=== PATIENT | male | born 1975 | race Two or more races ===

== ENCOUNTER 2017-06-10 09:07 | Inpatient (IN) | payer OTHER ==
[2017-06-10 10:41] VITALS: BMI 23.1
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
[2017-06-10] MEDS ORDERED: MENTHOL/PHENOL 1 EACH UD MM PRN (15:30)
[2017-06-10] MEDS ORDERED: P-EPHED 60MG/TRIPROLIDI 2.5MG TABLET PO PRN (15:30)
[2017-06-10] MEDS ORDERED: MAGNESIUM HYDROX 2400MG/30ML ORAL SUSPENSION 30 ML CUP PO PRN (15:30)
[2017-06-10] MEDS ORDERED: guaiFENesin/D-METHORPHAN HB 10 ML UNIT-DOSE CUPS PO PRN (15:30)
[2017-06-10] MEDS ORDERED: IBUPROFEN 400 MG TABLET (FP) PO PRN (15:30)
[2017-06-10] MEDS ORDERED: NICOTINE POLACRILEX 4 MG GUM BUC PRN (15:30)
[2017-06-10] MEDS ORDERED: diphenhydrAMINE HCL 50 MG CAPSULE PO PRN (15:30)
[2017-06-10] MEDS ORDERED: LOPERAMIDE HCL 2 MG CAPSULE PO PRN (15:30)
[2017-06-10] MEDS ORDERED: ACETAMINOPHEN 325 MG TABLET (FP) PO PRN (15:30)
[2017-06-10] MEDS ORDERED: MAGNESIUM CITRATE 300 ML BOTTLE PO PRN (15:30)
[2017-06-10] MEDS ORDERED: MAG HYDROX/AL HYDROX/SIMETH 30 ML UNIT-DOSE CUP PO PRN (15:30)
[2017-06-10] MEDS ORDERED: METHADONE HCL 10 MG TABLET (FOR DETOX USE ONLY) PO ONE ×2 (15:42→23:00)
[2017-06-10] MEDS: NICOTINE 21 MG/24 HOURS TOPICAL PATCH TD SCH (16:46)
[2017-06-10] MEDS: diazePAM 5 MG TABLET PO PRN (16:47)
[2017-06-10 21:03] LABS: URINE APPEARANCE CLEAR; URINE BILIRUBIN NEGATIVE (NEGATIVE); URINE BLOOD NEGATIVE (NEGATIVE); URINE COLOR YELLOW; URINE GLUCOSE (UA) NEGATIVE (NEGATIVE); URINE KETONE TRACE (NEGATIVE); URINE LEUK ESTERASE NEGATIVE (NEGATIVE); URINE NITRITE NEGATIVE (NEGATIVE); URINE PROTEIN NEGATIVE (NEGATIVE); URINE UROBILINOGEN NEGATIVE mg/dL (0.2-1.0)
[2017-06-10] MEDS ORDERED: THIAMINE HCL 100 MG TABLET (FP) PO SCH (22:00)
[2017-06-11] MEDS: diazePAM 5 MG TABLET PO PRN (05:49)
--- NOTE | 2017-06-11 09:12 | PN ---
S COWS - Scale Resting Pulse: 0= [place] 80 or Below Sweatin= Chills/Flushing Restless Observation: 1= Difficult to Sit Still Pupil Size: 1= Pupils >than Normal Bone or Joint Aches: 2= Severe Diffuse Aches Runny Nose/ Eye Tearin= Runny Nose/Eyes GI Upset > 30mins: 1= Stomach Cramp Tremor Observation of Outstretched Hands: 1= Tremor [place], Not Seen Yawning Observation: 0= None Anxiety or Irritability: 2=Irritable/Anxious Goose Flesh Skin: 0=Smooth Skin COWS Score: 11 S Progress Note (SOAP) Subjective: interrupted sleep, sweats, shakes, irritable runny nose Objective: 06/11/17 09:30 Vital Signs Temperature 97.2 F L 06/11/17 06:00 Pulse Rate 70 06/11/17 06:00 Respiratory Rate 18 06/11/17 06:00 Blood Pressure 105/63 06/11/17 06:00 O2 Sat by Pulse Oximetry (%) Laboratory Tests 06/10/17 17:15 Urine Color Yellow Urine Appearance Clear Urine pH 6.0 Ur Specific [place] 1.025 Urine Protein Negative Urine Glucose (UA) Negative Urine Ketones Trace H Urine Blood Negative Urine Nitrite Negative Urine Bilirubin Negative Urine Urobilinogen Negative Ur Leukocyte Esterase Negative pt aox3 irritable ambulating runny nose Assessment: 06/11/17 09:31 caridad [email or web address] Plan: cont. detox increase fluids valium prn methadone this am
[2017-06-11] MEDS: NICOTINE 21 MG/24 HOURS TOPICAL PATCH TD SCH (09:47)
[2017-06-11] MEDS ORDERED: PRENATAL VITAMINS W/ FOLIC ACID TABLET (FP) PO SCH (10:00)
[2017-06-11] MEDS ORDERED: METHADONE HCL 10 MG TABLET (FOR DETOX USE ONLY) PO ONE (10:00)
--- NOTE | 2017-06-11 10:13 | DS ---
[facility] Detox Discharge Summary Admission Date: 06/10/17 Discharge Date: 06/11/17 - History Present History: Opioid Dependence - Physical Exam Results Vital Signs: Vital Signs Temperature 97.2 F L 06/11/17 06:00 Pulse Rate 70 06/11/17 06:00 Respiratory Rate 18 06/11/17 06:00 Blood Pressure 105/63 06/11/17 06:00 O2 Sat by Pulse Oximetry (%) - Treatment Hospital Course: Detox Protocol Followed - Medication Discharge Medications: Ambulatory Orders Alprazolam [Xanax] 1 mg PO QID 06/10/17 Zolpidem Tartrate [Ambien] 10 mg PO HS 06/10/17 - Diagnosis (1) Opioid dependence with withdrawal Current Visit: Yes Status: Chronic (2) Anxiety and depression Current Visit: Yes Status: Chronic - AMA Did Patient Leave Against Medical Advice: Yes (wants to leave doesn't want to stay. )
--- NOTE | 2017-06-11 10:24 | EKG ---
Test Reason : Blood Pressure : / mmHG Vent. Rate : 069 BPM Atrial Rate : 069 BPM P-R Int : 168 ms QRS Dur : 092 ms QT Int : 400 ms P-R-T Axes : 066 022 052 degrees QTc Int : 428 ms NORMAL SINUS RHYTHM INCOMPLETE RIGHT BUNDLE BRANCH BLOCK NONSPECIFIC ST AND T WAVE ABNORMALITY Confirmed by MD MENDY, NELLA ([id number]) on 06/11/2017 10:24:16 AM Referred By: Confirmed By:NELLA BROOKE MD
[2017-06-11 10:29] LABS: MCH 27.1 pg (25.7-33.7); MCHC 32.9 g/dl (32.0-35.9); MEAN CELL VOLUME 82.3 fl (80-96); MEAN PLT VOLUME 9.2 fl (7.5-11.1); PLATELET COUNT 184 K/MM3 (134-434); RDW 17.2 % (11.9-15.9)
[2017-06-11 10:35] VITALS: BP 96/59; PULSE 86; TEMP 96.1
[2017-06-11 10:49] LABS: ALBUMIN 3.4 g/dl (3.4-5.0); ALK PHOS 76 U/L (45-117); ANION GAP 8 (8-16); BILIRUBIN,TOTAL 0.2 mg/dL (0.2-1.0); CALCIUM 8.5 mg/dL (8.5-10.1); CO2 27 mmol/L (21-32); GLUCOSE,RANDOM 109 mg/dL (74-106); SGOT/AST 18 U/L (15-37); SGPT/ALT 24 U/L (12-78); TOT PROT 6.7 g/dl (6.4-8.2)
[2017-06-11 13:08] LABS: SICKLE CELL SCREEN NEGATIVE (NEGATIVE)
[2017-06-12] MEDS ORDERED: METHADONE HCL 5 MG TABLET (FOR DETOX USE ONLY) PO ONE (10:00)
[2017-06-13] MEDS ORDERED: METHADONE HCL 5 MG TABLET (FOR DETOX USE ONLY) PO ONE (10:00)
[2017-06-14] MEDS ORDERED: METHADONE HCL 10 MG TABLET (FOR DETOX USE ONLY) PO ONE (10:00)
[2017-06-15] MEDS ORDERED: METHADONE HCL 5 MG TABLET (FOR DETOX USE ONLY) PO ONE (06:00)
== END 2017-06-11 10:40 | disposition left against medical advice (07) | DRG 770 ==
LOC: YASAS 09:07 → Y6N 13:44
PROVIDERS: ADMIT Internal Medicine Addiction Medicine; ATTEND Internal Medicine Addiction Medicine
PROC: HZ2ZZZZ Detoxification Services for Substance Abuse Treatment (ICD-10-PCS; principal; 2017-06-11)
DX: F11.23 Opioid dependence with withdrawal (principal); F17.210 Nicotine dependence, cigarettes, uncomplicated; F41.8 Other specified anxiety disorders
CPT/HCPCS: 36415; 80053; 81003; 85027; 85660; 86593; 93005; 93010

== ENCOUNTER 2017-07-05 21:35 | Emergency (ER) | payer OTHER ==
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
[2017-07-05 21:42] VITALS: BP 110/75; PULSE 78; TEMP 98.1; BMI 23.5
== END 2017-07-05 21:53 | disposition home or self-care (01) ==
LOC: FER 21:35
PROC: 0HQMXZZ Repair Right Foot Skin, External Approach (ICD-10-PCS; principal; 2017-07-05)
DX: S91.111A Laceration without foreign body of right great toe without damage to nail, initial encounter (principal); W45.8XXA Other foreign body or object entering through skin, initial encounter; Y93.9 Activity, unspecified; Y92.9 Unspecified place or not applicable; F17.210 Nicotine dependence, cigarettes, uncomplicated
CPT/HCPCS: 99281-25

== ENCOUNTER 2017-07-13 08:40 | Inpatient (IN) | payer OTHER ==
[2017-07-13 09:03] VITALS: BMI 23.0
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
[2017-07-13 12:41] LABS: HIV 1 & 2 AB NEGATIVE; HIV 1 AGp24 NEGATIVE
[2017-07-13] MEDS ORDERED: guaiFENesin/D-METHORPHAN HB 10 ML UNIT-DOSE CUPS PO PRN (12:57)
[2017-07-13] MEDS ORDERED: LOPERAMIDE HCL 2 MG CAPSULE PO PRN (12:57)
[2017-07-13] MEDS ORDERED: NICOTINE POLACRILEX 2 MG GUM BC PRN (12:57)
[2017-07-13] MEDS ORDERED: MAGNESIUM HYDROX 2400MG/30ML ORAL SUSPENSION 30 ML CUP PO PRN (12:57)
[2017-07-13] MEDS ORDERED: hydrOXYzine PAMOATE 50 MG CAPSULE (FP) PO PRN (12:57)
[2017-07-13] MEDS ORDERED: IBUPROFEN 400 MG TABLET (FP) PO PRN (12:57)
[2017-07-13] MEDS ORDERED: ACETAMINOPHEN 325 MG TABLET (FP) PO PRN (12:57)
[2017-07-13] MEDS ORDERED: diphenhydrAMINE HCL 50 MG CAPSULE PO PRN (12:57)
[2017-07-13] MEDS ORDERED: MENTHOL/PHENOL 1 EACH UD MM PRN (12:57)
[2017-07-13] MEDS ORDERED: MAGNESIUM CITRATE 300 ML BOTTLE PO PRN (12:57)
[2017-07-13] MEDS ORDERED: MAG HYDROX/AL HYDROX/SIMETH 30 ML UNIT-DOSE CUP PO PRN (12:57)
[2017-07-13] MEDS ORDERED: P-EPHED 60MG/TRIPROLIDI 2.5MG TABLET PO PRN (12:57)
[2017-07-13] MEDS ORDERED: METHADONE HCL 10 MG TABLET (FOR DETOX USE ONLY) PO ONE ×2 (14:30→23:00)
[2017-07-13 14:51] LABS: MCH 26.7 pg (25.7-33.7); MCHC 32.5 g/dl (32.0-35.9); MEAN CELL VOLUME 82.1 fl (80-96); MEAN PLT VOLUME 8.5 fl (7.5-11.1); PLATELET COUNT 245 K/MM3 (134-434); RDW 16.8 % (11.9-15.9)
[2017-07-13] MEDS: diazePAM 5 MG TABLET PO PRN ×2 (14:52→20:39)
[2017-07-13] MEDS: NICOTINE 14 MG/24 HOURS TOPICAL PATCH TD SCH (14:52)
[2017-07-13 15:05] LABS: ALBUMIN 3.7 g/dl (3.4-5.0); ANION GAP 7 (8-16); CALCIUM 9.5 mg/dL (8.5-10.1); CO2 29 mmol/L (21-32); GLUCOSE,RANDOM 116 mg/dL (74-106)
[2017-07-13 15:08] LABS: ALK PHOS 78 U/L (45-117); BILIRUBIN,TOTAL 0.4 mg/dL (0.2-1.0); CREATININE 0.8 mg/dL (0.7-1.3); SGOT/AST 27 U/L (15-37); SGPT/ALT 36 U/L (12-78); TOT PROT 7.6 g/dl (6.4-8.2)
[2017-07-13 17:58] LABS: URINE APPEARANCE CLEAR; URINE BILIRUBIN NEGATIVE (NEGATIVE); URINE BLOOD NEGATIVE (NEGATIVE); URINE COLOR YELLOW; URINE GLUCOSE (UA) NEGATIVE (NEGATIVE); URINE KETONE NEGATIVE (NEGATIVE); URINE LEUK ESTERASE NEGATIVE (NEGATIVE); URINE NITRITE NEGATIVE (NEGATIVE); URINE PROTEIN NEGATIVE (NEGATIVE); URINE UROBILINOGEN NEGATIVE mg/dL (0.2-1.0)
[2017-07-13] MEDS ORDERED: THIAMINE HCL 100 MG TABLET (FP) PO SCH (22:00)
[2017-07-14] MEDS: diazePAM 5 MG TABLET PO PRN ×2 (07:00→10:23)
[2017-07-14 09:30] VITALS: BP 101/73; PULSE 87; TEMP 97.7
[2017-07-14] MEDS ORDERED: PRENATAL VITAMINS W/ FOLIC ACID TABLET (FP) PO SCH (10:00)
[2017-07-14] MEDS ORDERED: METHADONE HCL 10 MG TABLET (FOR DETOX USE ONLY) PO ONE (10:00)
[2017-07-14] MEDS: NICOTINE 14 MG/24 HOURS TOPICAL PATCH TD SCH (10:21)
[2017-07-14] MEDS ORDERED: CYCLOBENZAPRINE HCL 10 MG TABLET (FP) PO PRN (10:28)
--- NOTE | 2017-07-14 11:12 | CONSULT ---
[facility] Psychiatric Consult - Data Date of interview: 07/14/17 Admission source: [facility] Identifying data: Readmission to [facility] for this 41 y/o [place]-Vincentian male seekig detox treatment on for xanax and heroin dependence.Patient is ,a father of two,domiciled and currently employed. Substance Abuse History: Patient confirmed this report in this interview. Smoking Cessation. Smoking history: Current every day smoker. Have you smoked in the past 12 months: Yes. Aproximately how many cigarettes per day: 30. Hx Chewing Tobacco Use: No. Initiated information on smoking cessation: Yes. ' Breaking Loose' booklet given: 07/13/17. - Substance & Tx. History. Hx Alcohol Use: No (DENIES). Hx Substance Use: Yes (XANAX/HEROIN). Substance Use Type: Heroin, Tranquilizers (PT ON RX XANAX 4 MG PO DAILY.). Hx Substance Use Treatment: Yes (LAST DETOX AT [facility] BUT LEFT AMA). - Substances Abused. Heroin. Route: Injection. Frequency: Daily. Amount used: 10-15 bags. Age of first use: 39. Date of Last Use: 07/13/17. Alprazolam (Xanax). Route: Oral. Frequency: Daily. Amount used: 1 MG 4X DAILY RX. Age of first use: 39. Date of Last Use: 07/13/17 Medical History: Remarkable for a history of orthosurgery for torn meniscus in both knees and laminectomy. Psychiatric History: No reported history of psychiatric hospitalizations.Followed by a private psychiatrist in the community.Diagnosed with Anxiety Disorder and prescribed alprazolam.Mr Melvin denies history of suicide attempts. Physical/Sexual Abuse/Trauma History: Patient denies. Additional Comment: Urine Drug Screen Results: OPI-Opiates, BZO-Benzodiazepines , TCA-Tricyclic Antidepressant.Noted. Mental Status Exam - Mental Status Exam Alert and Oriented to: Time, Place, Person Cognitive Function: Good Patient Appearance: Well Groomed Mood: Hopeful Affect: Appropriate, Normal Range Patient Behavior: Appropriate, Cooperative Speech Pattern: Clear Voice Loudness: Normal Thought Process: Intact, Goal Oriented Thought Disorder: Not Present Hallucinations: Denies Suicidal Ideation: Denies Homicidal Ideation: Denies Insight/Judgement: Poor Sleep: Poorly, Difficulty falling asleep Appetite: Good Muscle strength/Tone: Normal Gait/Station: Normal Psychiatric Findings - Problem List ([place] 1, 2,3) (1) Opioid dependence with withdrawal Current Visit: Yes Status: Acute (2) Benzodiazepine dependence Current Visit: Yes Status: Acute (3) Nicotine dependence Current Visit: Yes Status: Acute (4) Substance induced mood disorder Current Visit: Yes Status: Acute (5) Insomnia Current Visit: Yes Status: Acute - Initial Treatment Plan Initial Treatment Plan: Psychoeducation.Detoxification.Insomnia is addressed with benadryl 50 mg po hs prn.Side effects/benefits discussed with patient.He agrees with this careplan.Observation.
--- NOTE | 2017-07-14 12:57 | EKG ---
Test Reason : Blood Pressure : / mmHG Vent. Rate : 080 BPM Atrial Rate : 080 BPM P-R Int : 174 ms QRS Dur : 088 ms QT Int : 374 ms P-R-T Axes : 077 047 065 degrees QTc Int : 431 ms NORMAL SINUS RHYTHM NORMAL ECG WHEN COMPARED WITH ECG OF 10-JUN-2017 15:24, T WAVE INVERSION NO LONGER EVIDENT IN ANTERIOR LEADS Confirmed by SANDRITA CID, BRIGHT ([id number]) on 07/14/2017 12:57:40 PM Referred By: Moisés Juarez Confirmed By:BRIGHT REMY MD
--- NOTE | 2017-07-14 16:46 | DS ---
[facility] Detox Discharge Summary Admission Date: 07/13/17 Discharge Date: 07/14/17 - History Present History: Opioid Dependence, Sedative Dependence Additional Comments: PATIENT DID NOT WISH TO STAY TO COMPLETE DETOX REGIMEN. PATIENT ADVISED TO GO IMMEDIATELY TO NEAREST ER SHOULD ANY INTOLERABLE DETOX SYMPTOMS DEVELOP AT ANY TIME. PATIENT LEFT UNIT IN STABLE MEDICAL CONDITION. Pertinent Past History: Anxiety / Depression, Insomnia. - Physical Exam Results Vital Signs: Vital Signs Temperature 97.7 F 07/14/17 09:29 Pulse Rate 87 07/14/17 09:29 Respiratory Rate 20 07/14/17 09:29 Blood Pressure 101/73 07/14/17 09:29 O2 Sat by Pulse Oximetry (%) Pertinent Admission Physical Exam Findings: WITHDRAWAL SYMPTOMS. Laboratory Tests 07/13/17 07/13/17 07/13/17 10:50 13:00 13:00 WBC 11.0 H RBC 4.89 Hgb 13.1 D Hct 40.1 MCV 82.1 MCH 26.7 MCHC 32.5 RDW 16.8 H Plt Count 245 D MPV 8.5 Sodium Potassium Chloride Carbon Dioxide Anion Gap BUN Creatinine Creat Clearance w eGFR Random Glucose Calcium Total Bilirubin AST ALT Alkaline Phosphatase Total Protein Albumin Urine Color Urine Appearance Urine pH Ur Specific [place] Urine Protein Urine Glucose (UA) Urine Ketones Urine Blood Urine Nitrite Urine Bilirubin Urine Urobilinogen Ur Leukocyte Esterase RPR Titer Nonreactive HIV 1&2 Antibody Screen Negative HIV P24 Antigen Negative 07/13/17 07/13/17 13:00 14:00 WBC RBC Hgb Hct MCV MCH MCHC RDW Plt Count MPV Sodium 139 Potassium 4.3 Chloride 103 Carbon Dioxide 29 Anion Gap 7 L BUN 17 Creatinine 0.8 Creat Clearance w eGFR > 60 Random Glucose 116 H Calcium 9.5 Total Bilirubin 0.4 D AST 27 D ALT 36 D Alkaline Phosphatase 78 Total Protein 7.6 Albumin 3.7 Urine Color Yellow Urine Appearance Clear Urine pH 6.0 Ur Specific [place] 1.020 Urine Protein Negative Urine Glucose (UA) Negative Urine Ketones Negative Urine Blood Negative Urine Nitrite Negative Urine Bilirubin Negative Urine Urobilinogen Negative Ur Leukocyte Esterase Negative RPR Titer HIV 1&2 Antibody Screen HIV P24 Antigen LABS NOTED. - Treatment Hospital Course: Detoxed Safely - Diagnosis (1) Insomnia Status: Acute Qualifiers: Insomnia type: unspecified Qualified Code(s): G47.00 - Insomnia, unspecified (2) Nicotine dependence Status: Chronic Qualifiers: Nicotine product type: cigarettes Substance use status: in withdrawal Qualified Code(s): F17.213 - Nicotine dependence, cigarettes, with withdrawal (3) Opioid dependence with withdrawal Status: Acute (4) Substance induced mood disorder Status: Acute (5) Anxiety and depression Status: Chronic (6) Benzodiazepine dependence Status: Acute - AMA Did Patient Leave Against Medical Advice: Yes (PATIENT DID NOT WISH TO STAY TO COMPLETE DETOX REGIMEN.)
[2017-07-15] MEDS ORDERED: METHADONE HCL 5 MG TABLET (FOR DETOX USE ONLY) PO ONE (10:00)
[2017-07-16] MEDS ORDERED: METHADONE HCL 10 MG TABLET (FOR DETOX USE ONLY) PO ONE (10:00)
[2017-07-17] MEDS ORDERED: METHADONE HCL 5 MG TABLET (FOR DETOX USE ONLY) PO ONE (06:00)
== END 2017-07-14 12:28 | disposition left against medical advice (07) | DRG 770 ==
LOC: YASAS 08:40 → Y3N 11:10
PROVIDERS: ADMIT Internal Medicine; ATTEND Internal Medicine
PROC: HZ2ZZZZ Detoxification Services for Substance Abuse Treatment (ICD-10-PCS; principal; 2017-07-14)
DX: F11.23 Opioid dependence with withdrawal (principal); F13.230 Sedative, hypnotic or anxiolytic dependence with withdrawal, uncomplicated; F17.210 Nicotine dependence, cigarettes, uncomplicated; F19.24 Other psychoactive substance dependence with psychoactive substance-induced mood disorder; F41.8 Other specified anxiety disorders; G47.00 Insomnia, unspecified
CPT/HCPCS: 36415; 80053; 81003; 85027; 86593; 87389; 93005; 93010

== ENCOUNTER 2018-02-28 11:37 | Inpatient (IN) | payer OTHER ==
[2018-02-28 12:08] VITALS: BMI 20.7
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
[2018-02-28] MEDS ORDERED: LOPERAMIDE HCL 2 MG CAPSULE PO PRN (13:51)
[2018-02-28] MEDS ORDERED: guaiFENesin/D-METHORPHAN HB 10 ML UNIT-DOSE CUPS PO PRN (13:51)
[2018-02-28] MEDS ORDERED: MAG HYDROX/AL HYDROX/SIMETH 30 ML UNIT-DOSE CUP PO PRN (13:51)
[2018-02-28] MEDS ORDERED: MENTHOL/PHENOL 1 EACH UD MM PRN (13:51)
[2018-02-28] MEDS ORDERED: ACETAMINOPHEN 325 MG TABLET (FP) PO PRN (13:51)
[2018-02-28] MEDS ORDERED: IBUPROFEN 400 MG TABLET (FP) PO PRN (13:51)
[2018-02-28] MEDS ORDERED: P-EPHED 60MG/TRIPROLIDI 2.5MG TABLET PO PRN (13:51)
[2018-02-28] MEDS ORDERED: MAGNESIUM CITRATE 300 ML BOTTLE PO PRN (13:51)
[2018-02-28] MEDS ORDERED: NICOTINE POLACRILEX 4 MG GUM BUC PRN (13:51)
[2018-02-28] MEDS ORDERED: MAGNESIUM HYDROX 2400MG/30ML ORAL SUSPENSION 30 ML CUP PO PRN (13:51)
[2018-02-28] MEDS ORDERED: diazePAM 5 MG TABLET PO ONE (14:45)
[2018-02-28] MEDS ORDERED: METHADONE HCL 10 MG TABLET (FOR DETOX USE ONLY) PO ONE ×2 (14:45→23:00)
[2018-02-28] MEDS: NICOTINE 21 MG/24 HOURS TOPICAL PATCH TD SCH (15:33)
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
[2018-02-28] MEDS: diazePAM 5 MG TABLET PO PRN (18:32)
[2018-02-28] MEDS ORDERED: MELATONIN 5 MG TABLETS PO PRN (22:00)
[2018-02-28] MEDS: diazePAM 5 MG TABLET PO SCH (22:27)
[2018-02-28] MEDS: THIAMINE HCL 100 MG TABLET (FP) PO SCH (22:27)
[2018-02-28] MEDS: ZOLPIDEM TARTRATE 10 MG TABLET (PARK CARE ONLY) PO PRN (22:29)
[2018-02-28 23:13] LABS: URINE APPEARANCE TURBID; URINE BILIRUBIN NEGATIVE (<2.0 mg/dL); URINE BLOOD NEGATIVE (NEGATIVE); URINE COLOR AMBER; URINE GLUCOSE (UA) NEGATIVE (NEGATIVE); URINE KETONE NEGATIVE (NEGATIVE); URINE LEUK ESTERASE NEGATIVE (NEGATIVE); URINE NITRITE NEGATIVE (NEGATIVE); URINE PROTEIN NEGATIVE (NEGATIVE); URINE UROBILINOGEN NEGATIVE mg/dL (0.2-1.0)
--- NOTE | 2018-02-28 23:56 | EKG ---
Test Reason : Blood Pressure : / mmHG Vent. Rate : 071 BPM Atrial Rate : 071 BPM P-R Int : 160 ms QRS Dur : 086 ms QT Int : 376 ms P-R-T Axes : 064 -03 068 degrees QTc Int : 408 ms NORMAL SINUS RHYTHM NORMAL ECG WHEN COMPARED WITH ECG OF 13-JUL-2017 13:37, NO SIGNIFICANT CHANGE WAS FOUND Confirmed by JEN WILLIAMSON MD ([id number]) on 02/28/2018 11:56:14 PM Referred By: Confirmed By:JEN WILLIAMSON MD
[2018-03-01] MEDS: diazePAM 5 MG TABLET PO SCH ×3 (05:17→22:38)
[2018-03-01] MEDS: diazePAM 5 MG TABLET PO PRN ×2 (09:22→17:18)
[2018-03-01] MEDS: PRENATAL VITAMINS W/ FOLIC ACID TABLET (FP) PO SCH (09:22)
[2018-03-01] MEDS: NICOTINE 21 MG/24 HOURS TOPICAL PATCH TD SCH ×2 (09:22→09:26)
[2018-03-01] MEDS ORDERED: METHADONE HCL 10 MG TABLET (FOR DETOX USE ONLY) PO SCH (10:00)
[2018-03-01 10:38] LABS: HEMATOCRIT 41.6 % (35.4-49); HEMOGLOBIN 13.8 GM/dL (11.7-16.9); MCH 26.8 pg (25.7-33.7); MCHC 33.1 g/dl (32.0-35.9); MEAN CELL VOLUME 81.1 fl (80-96); MEAN PLT VOLUME 8.9 fl (7.5-11.1); PLATELET COUNT 293 K/MM3 (134-434); RBC 5.13 M/mm3 (4.00-5.60); RDW 16.7 % (11.9-15.9)
[2018-03-01 10:53] LABS: CHLORIDE 100 mmol/L (98-107); SODIUM 138 mmol/L (136-145)
[2018-03-01 11:02] LABS: ALBUMIN 4.3 g/dl (3.4-5.0); ALK PHOS 96 U/L (45-117); ANION GAP 13 (8-16); BILIRUBIN,TOTAL 0.5 mg/dL (0.2-1.0); BLOOD UREA NITROGEN 14 mg/dL (7-18); CALCIUM 10.1 mg/dL (8.5-10.1); CO2 25 mmol/L (21-32); CREATININE 0.9 mg/dL (0.7-1.3); GLUCOSE,RANDOM 88 mg/dL (74-106); SGPT/ALT 21 U/L (12-78); TOT PROT 8.8 g/dl (6.4-8.2)
[2018-03-01 11:36] LABS: POTASSIUM 4.6 mmol/L (3.5-5.1); SGOT/AST 26 U/L (15-37)
--- NOTE | 2018-03-01 13:16 | PN ---
[facility] CIWA - CIWA Score Nausea/Vomitin-No Nausea/No Vomiting Muscle Tremors: None Anxiety: 4-Mod. Anxious/Guarded Agitation: 3 Paroxysmal Sweats: 3 Orientation: 0-Oriented Tacttile Disturbances: 3-Moderate Itch/Numb/Burn Auditory Disturbances: 1-Very Mild Visual Disturbances: 2-Mild Sensitivity Headache: 0-None Present CIWA-Ar Total Score: 16 BHS COWS - Scale Resting Pulse: 1= AL 81-100 Sweatin= Chills/Flushing Restless Observation: 1= Difficult to Sit Still Pupil Size: 0= Normal to Room Light Bone or Joint Aches: 2= Severe Diffuse Aches Runny Nose/ Eye Tearin= None GI Upset > 30mins: 1= Stomach Cramp Tremor Observation of Outstretched Hands: 0= None Yawning Observation: 2= >3x During Session Anxiety or Irritability: 2=Irritable/Anxious Goose Flesh Skin: 3=Piloerection COWS Score: 13 BHS Progress Note (SOAP) Subjective: Fatigue, Body Aches, Interrupted Sleep, Sweating. Objective: PATIENT A & O X 3, OBSERVED AMBULATING ON UNIT. NO ACUTE DISTRESS. 03/01/18 13:13 Vital Signs Temperature 97.6 F 03/01/18 09:22 Pulse Rate 57 L 03/01/18 09:22 Respiratory Rate 18 03/01/18 09:22 Blood Pressure 102/59 03/01/18 09:22 O2 Sat by Pulse Oximetry (%) Laboratory Tests 02/28/18 03/01/18 03/01/18 15:00 06:00 06:00 WBC 8.0 RBC 5.13 Hgb 13.8 Hct 41.6 MCV 81.1 MCH 26.8 MCHC 33.1 RDW 16.7 H Plt Count 293 MPV 8.9 Sodium 138 Potassium 4.6 Chloride 100 Carbon Dioxide 25 Anion Gap 13 BUN 14 Creatinine 0.9 Creat Clearance w eGFR > 60 Random Glucose 88 D Calcium 10.1 Total Bilirubin 0.5 D AST 26 ALT 21 D Alkaline Phosphatase 96 D Total Protein 8.8 H Albumin 4.3 Urine Color [place] Urine Appearance Turbid Urine pH 5.0 Ur Specific [place] 1.025 Urine Protein Negative Urine Glucose (UA) Negative Urine Ketones Negative Urine Blood Negative Urine Nitrite Negative Urine Bilirubin Negative Urine Urobilinogen Negative Ur Leukocyte Esterase Negative LABS NOTED. HIV AB, RPR RESULTS PENDING. 03/01/18 13:15 Assessment: 03/01/18 13:14 WITHDRAWAL SYMPTOMS. Plan: CONTINUE DETOX.
[2018-03-01] MEDS: ZOLPIDEM TARTRATE 10 MG TABLET (PARK CARE ONLY) PO PRN (22:37)
[2018-03-01] MEDS: THIAMINE HCL 100 MG TABLET (FP) PO SCH (22:37)
[2018-03-02] MEDS: diazePAM 5 MG TABLET PO PRN ×2 (01:54→06:35)
[2018-03-02 09:50] VITALS: TEMP 97.6
[2018-03-02 09:53] VITALS: BP 118/76; PULSE 98
[2018-03-02] MEDS ORDERED: METHADONE HCL 5 MG TABLET (FOR DETOX USE ONLY) PO SCH (10:00)
[2018-03-02] MEDS ORDERED: diazePAM 5 MG TABLET PO SCH (10:00)
[2018-03-02] MEDS ORDERED: CYCLOBENZAPRINE HCL 10 MG TABLET (FP) PO PRN (10:22)
[2018-03-02] MEDS: NICOTINE 21 MG/24 HOURS TOPICAL PATCH TD SCH (10:28)
[2018-03-02] MEDS: PRENATAL VITAMINS W/ FOLIC ACID TABLET (FP) PO SCH (10:29)
--- NOTE | 2018-03-02 14:13 | PN ---
S CIWA - CIWA Score Nausea/Vomitin-No Nausea/No Vomiting Muscle Tremors: 3 Anxiety: 4-Mod. Anxious/Guarded Agitation: 4-Moderately Restless Paroxysmal Sweats: No Perspiration Orientation: 0-Oriented Tacttile Disturbances: 3-Moderate Itch/Numb/Burn Auditory Disturbances: 1-Very Mild Visual Disturbances: 2-Mild Sensitivity Headache: 0-None Present CIWA-Ar Total Score: 17 S COWS - Scale Resting Pulse: 1= AL 81-100 Sweatin=Flushed/Facial Moisture Restless Observation: 1= Difficult to Sit Still Pupil Size: 0= Normal to Room Light Bone or Joint Aches: 2= Severe Diffuse Aches Runny Nose/ Eye Tearin= None GI Upset > 30mins: 0= None Tremor Observation of Outstretched Hands: 0= None Yawning Observation: 1= 1-2x During Session Anxiety or Irritability: 2=Irritable/Anxious Goose Flesh Skin: 3=Piloerection COWS Score: 12 S Progress Note (SOAP) Subjective: Anxious, Interrupted Sleep, Body Aches, Fatigue. Objective: PATIENT A & O X 3, OBSERVED AMBULATING ON UNIT. NO ACUTE DISTRESS. 03/02/18 14:12 Vital Signs Temperature 97.6 F 03/02/18 09:49 Pulse Rate 98 H 03/02/18 09:49 Respiratory Rate 16 03/02/18 09:49 Blood Pressure 118/76 03/02/18 09:49 O2 Sat by Pulse Oximetry (%) Laboratory Tests 02/28/18 02/28/18 03/01/18 08:40 15:00 06:00 WBC 8.0 RBC 5.13 Hgb 13.8 Hct 41.6 MCV 81.1 MCH 26.8 MCHC 33.1 RDW 16.7 H Plt Count 293 MPV 8.9 Sodium Potassium Chloride Carbon Dioxide Anion Gap BUN Creatinine Creat Clearance w eGFR Random Glucose Calcium Total Bilirubin AST ALT Alkaline Phosphatase Total Protein Albumin Urine Color [place]na Urine Appearance Turbid Urine pH 5.0 Ur Specific [place] 1.025 Urine Protein Negative Urine Glucose (UA) Negative Urine Ketones Negative Urine Blood Negative Urine Nitrite Negative Urine Bilirubin Negative Urine Urobilinogen Negative Ur Leukocyte Esterase Negative HIV 1&2 Antibody Screen Negative HIV P24 Antigen Negative 03/01/18 06:00 WBC RBC Hgb Hct MCV MCH MCHC RDW Plt Count MPV Sodium 138 Potassium 4.6 Chloride 100 Carbon Dioxide 25 Anion Gap 13 BUN 14 Creatinine 0.9 Creat Clearance w eGFR > 60 Random Glucose 88 D Calcium 10.1 Total Bilirubin 0.5 D AST 26 ALT 21 D Alkaline Phosphatase 96 D Total Protein 8.8 H Albumin 4.3 Urine Color Urine Appearance Urine pH Ur Specific [place] Urine Protein Urine Glucose (UA) Urine Ketones Urine Blood Urine Nitrite Urine Bilirubin Urine Urobilinogen Ur Leukocyte Esterase HIV 1&2 Antibody Screen HIV P24 Antigen LABS NOTED. RPR RESULT PENDING. 03/02/18 14:13 Assessment: 03/02/18 14:12 WITHDRAWAL SYMPTOMS. Plan: CONTINUE DETOX.
--- NOTE | 2018-03-02 14:15 | DS ---
[facility] Detox Discharge Summary Admission Date: 02/28/18 Discharge Date: 03/02/18 - History Present History: Opioid Dependence, Sedative Dependence Additional Comments: PATIENT HAS PERSONAL ISSUE AND DOES NOT WISH TO STAY TO COMPLETE DETOX REGIMEN. RISKS OF LEAVING DETOX UNIT AGAINST MEDICAL ADVICE AND PRIOR TO COMPLETION OF DETOX REGIMEN EXPLAINED TO PATIENT. PATIENT ADVISED TO GO IMMEDIATELY TO NEAREST ER SHOULD ANY INTOLERABLE DETOX SYMPTOMS DEVELOP AT ANY TIME. PATIENT LEFT DETOX UNIT IN STABLE MEDICAL CONDITION Pertinent Past History: Anxiety, Depression, History of Seizures, Nicotine Dependence, Insomnia. - Physical Exam Results Vital Signs: Vital Signs Temperature 97.6 F 03/02/18 09:49 Pulse Rate 98 H 03/02/18 09:49 Respiratory Rate 16 03/02/18 09:49 Blood Pressure 118/76 03/02/18 09:49 O2 Sat by Pulse Oximetry (%) Pertinent Admission Physical Exam Findings: WITHDRAWAL SYMPTOMS. Laboratory Tests 02/28/18 02/28/18 03/01/18 08:40 15:00 06:00 WBC 8.0 RBC 5.13 Hgb 13.8 Hct 41.6 MCV 81.1 MCH 26.8 MCHC 33.1 RDW 16.7 H Plt Count 293 MPV 8.9 Sodium Potassium Chloride Carbon Dioxide Anion Gap BUN Creatinine Creat Clearance w eGFR Random Glucose Calcium Total Bilirubin AST ALT Alkaline Phosphatase Total Protein Albumin Urine Color Amna Urine Appearance Turbid Urine pH 5.0 Ur Specific [place] 1.025 Urine Protein Negative Urine Glucose (UA) Negative Urine Ketones Negative Urine Blood Negative Urine Nitrite Negative Urine Bilirubin Negative Urine Urobilinogen Negative Ur Leukocyte Esterase Negative HIV 1&2 Antibody Screen Negative HIV P24 Antigen Negative 03/01/18 06:00 WBC RBC Hgb Hct MCV MCH MCHC RDW Plt Count MPV Sodium 138 Potassium 4.6 Chloride 100 Carbon Dioxide 25 Anion Gap 13 BUN 14 Creatinine 0.9 Creat Clearance w eGFR > 60 Random Glucose 88 D Calcium 10.1 Total Bilirubin 0.5 D AST 26 ALT 21 D Alkaline Phosphatase 96 D Total Protein 8.8 H Albumin 4.3 Urine Color Urine Appearance Urine pH Ur Specific [place] Urine Protein Urine Glucose (UA) Urine Ketones Urine Blood Urine Nitrite Urine Bilirubin Urine Urobilinogen Ur Leukocyte Esterase HIV 1&2 Antibody Screen HIV P24 Antigen LABS NOTED. - Treatment Hospital Course: Detoxed Safely - Diagnosis (1) Nicotine dependence Current Visit: Yes Status: Acute Qualifiers: Nicotine product type: cigarettes Substance use status: in withdrawal Qualified Code(s): F17.213 - Nicotine dependence, cigarettes, with withdrawal (2) Opioid dependence with withdrawal Current Visit: Yes Status: Acute (3) Sedative, hypnotic or anxiolytic dependence with withdrawal, uncomplicated Current Visit: Yes Status: Acute (4) Anxiety and depression Current Visit: Yes Status: Suspected (5) Insomnia Current Visit: Yes Status: Acute Qualifiers: Insomnia type: unspecified Qualified Code(s): G47.00 - Insomnia, unspecified - AMA Did Patient Leave Against Medical Advice: Yes (PT HAS PERSONAL ISSUE AND DOES NOT WISH TO STAY TO COMPLETE DETOX REGIMEN.)
[2018-03-04] MEDS ORDERED: diazePAM 5 MG TABLET PO SCH (10:00)
[2018-03-04] MEDS ORDERED: METHADONE HCL 10 MG TABLET (FOR DETOX USE ONLY) PO SCH (10:00)
[2018-03-05] MEDS ORDERED: METHADONE HCL 5 MG TABLET (FOR DETOX USE ONLY) PO SCH (06:00)
== END 2018-03-02 13:50 | disposition left against medical advice (07) | DRG 770 ==
LOC: YASAS 11:37 → Y3N 14:29
PROVIDERS: ADMIT Internal Medicine; ATTEND Internal Medicine
PROC: HZ2ZZZZ Detoxification Services for Substance Abuse Treatment (ICD-10-PCS; principal; 2018-02-28)
DX: F11.23 Opioid dependence with withdrawal (principal); F13.230 Sedative, hypnotic or anxiolytic dependence with withdrawal, uncomplicated; F17.210 Nicotine dependence, cigarettes, uncomplicated; F41.8 Other specified anxiety disorders; G47.00 Insomnia, unspecified
CPT/HCPCS: 36415; 80053; 81003; 85027; 86593; 87389; 93005; 93010

== ENCOUNTER 2018-10-08 09:09 | Emergency (ER) | payer OTHER ==
[2018-10-08 09:14] VITALS: BP 123/80; PULSE 98; TEMP 98; BMI 21.9
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
== END 2018-10-08 10:08 | disposition home or self-care (01) ==
LOC: JERFT 09:09
DX: S29.012A Strain of muscle and tendon of back wall of thorax, initial encounter (principal); X50.9XXA Other and unspecified overexertion or strenuous movements or postures, initial encounter; Y93.89 Activity, other specified; Y92.89 Other specified places as the place of occurrence of the external cause; Y99.8 Other external cause status; M62.830 Muscle spasm of back; F17.210 Nicotine dependence, cigarettes, uncomplicated; Z86.69 Personal history of other diseases of the nervous system and sense organs
CPT/HCPCS: 99281-25

== ENCOUNTER 2018-10-16 15:49 | Emergency (ER) | payer OTHER ==
[2018-10-16 16:24] VITALS: BP 108/64; PULSE 90; TEMP 98.4; BMI 21.9
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
== END 2018-10-16 17:26 | disposition home or self-care (01) ==
LOC: JER 15:49
DX: J02.9 Acute pharyngitis, unspecified (principal); Z86.69 Personal history of other diseases of the nervous system and sense organs
CPT/HCPCS: 87070; 87880; 99281-25

== ENCOUNTER 2019-02-05 14:26 | Emergency (ER) | payer OTHER ==
[2019-02-05 14:33] VITALS: BP 111/64; PULSE 97; TEMP 98.1; BMI 20.3
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
--- NOTE | 2019-02-05 16:17 | PDOC ---
Attending Attestation - HPI HPI: 02/05/19 16:30 The patient is a 43 year old male, with a significant past medical history of COPD and heroin abuse, who presents to the emergency department with, multiple weeks of intermittent right leg cramping lasting 5 [address] and occasionally when in an argument. Patient notes today after an episode of yelling followed by deep breaths he experienced an episode of cramping to the right middle finger and questionable if it extended to other surround fingers. He endorses that he was recently told he had a 2.5mm granuloma to his right lower lobe. He denies any recent fevers, chills, headache or dizziness. He denies any recent nausea, vomit, diarrhea or constipation. He denies any recent chest pain or shortness of breath. He denies any recent dysuria, frequency, urgency or hematuria. Allergies: Lactose. Past surgical history: Laminectomy (2012). Social History: Smoker (1-2ppd/20+ years) Primary Care Physician: Dr. Martinez <Macario Angel - Last Filed: 02/05/19 16:37> - Resident Resident Name: Tara Llamas - ED Attending Attestation I have performed the following: I have examined & evaluated the patient, The case was reviewed & discussed with the resident, I agree w/resident's findings & plan, Exceptions are as noted - Physicial Exam PE: 02/05/19 16:31 GENERAL: The patient is awake, alert, and fully oriented, Nontoxic - in no acute distress. HEAD: Normocephalic, atraumatic. EYES: extraocular movements intact, sclera anicteric, conjunctiva clear. ENT: Normal voice, Moist mucous membranes. NECK: Normal range of motion, supple LUNGS: Breath sounds equal, clear to auscultation bilaterally. No wheezes, no rhonchi, no rales. HEART: Regular rate and rhythm, normal S1 and S2 without murmur, rub or gallop. ABDOMEN: Soft, nontender, No guarding, no rebound. . No CVA tenderness EXTREMITIES: Normal range of motion, no edema. NEUROLOGICAL: No facial assymetry, Normal speech, PSYCH: anxious appearing SKIN: Warm, Dry, normal turgor, - Medical Decision Making 02/05/19 16:13 43y M hx of COPD (not home o2), polysubstance abuse presents with intermittent leg cramps for the past several weeks that last a few minutes at a time before resolving, but had some cramping on his R middle finger. The pt noptes he is currently asymptmatic. Suspect his symptoms may be secondary to an acute respiratory alkalosis with hypocalcemia based on timing the symptoms with his argument. The patient has had intermittent symptoms otherwise will check his labs to rule out metabolic derangements. if labs are unremarkable have him follow up with Dr. Elijah morrell for further outpatient management. 02/07/19 22:09 A portion of this note was documented by scribe services under my direction. I have reviewed the details of the note, within reason, and agree with the documentation with the following case summary and management plan written by me <Radhames Colvin - Last Filed: 02/07/19 22:10> Attestations - Attestations 02/05/19 16:30 Documentation prepared by Macario Angel, acting as medical/surgery registered nurse for Radhames Colvin MD. <Macario Angel - Last Filed: 02/05/19 16:37>
[2019-02-05 16:34] LABS: BASO % 0.6 % (0-2.0); EOS % 0.1 % (0-4.5); HEMATOCRIT 38.8 % (35.4-49); HEMOGLOBIN 13.5 GM/dL (11.7-16.9); LYMPH % 20.8 % (8-40); MCH 31.1 pg (25.7-33.7); MCHC 34.9 g/dl (32.0-35.9); MEAN CELL VOLUME 89.1 fl (80-96); MONO % 8.5 % (3.8-10.2); PLATELET COUNT 179 K/MM3 (134-434); RBC 4.36 M/mm3 (4.00-5.60); RDW 14.2 % (11.9-15.9); WHITE BLOOD COUNT 8.4 K/mm3 (4.0-10.0)
[2019-02-05 16:57] LABS: ALBUMIN 3.8 g/dl (3.4-5.0); ALK PHOS 80 U/L (45-117); ANION GAP 5 MMOL/L (8-16); BILIRUBIN,TOTAL 0.5 mg/dL (0.2-1); BLOOD UREA NITROGEN 19 mg/dL (7-18); CALCIUM 8.9 mg/dL (8.5-10.1); CHLORIDE 105 mmol/L (98-107); CO2 30 mmol/L (21-32); CREATININE 0.8 mg/dL (0.55-1.3); GLUCOSE,RANDOM 94 mg/dL (74-106); SGOT/AST 20 U/L (15-37); SGPT/ALT 37 U/L (13-61); SODIUM 140 mmol/L (136-145); TOT PROT 6.8 g/dl (6.4-8.2)
[2019-02-05 18:02] LABS: COCAINE, UR NEGATIVE ng/ml (CUTOFF=300); METHADONE, UR NEGATIVE ng/ml (CUTOFF=300); OPIATES, URI NEGATIVE ng/ml (CUTOFF=300); PHENCYCLIDINE,URINE NEGATIVE ng/ml (CUTOFF=25); URINE AMPHETAMINES NEGATIVE ng/ml (CUTOFF=500); URINE BARBITURATES NEGATIVE ng/ml (CUTOFF=200); URINE BENZODIAZEPINES NEGATIVE ng/ml (CUTOFF=200)
--- NOTE | 2019-02-06 22:50 | EKG ---
Test Reason : Blood Pressure : / mmHG Vent. Rate : 074 BPM Atrial Rate : 074 BPM P-R Int : 150 ms QRS Dur : 078 ms QT Int : 364 ms P-R-T Axes : 066 007 071 degrees QTc Int : 404 ms NORMAL SINUS RHYTHM WITH SINUS ARRHYTHMIA NORMAL ECG WHEN COMPARED WITH ECG OF 28-FEB-2018 15:15, NO SIGNIFICANT CHANGE WAS FOUND Confirmed by JEN WILLIAMSON MD ([id number]) on 02/06/2019 10:50:14 PM Referred By: Confirmed By:JEN WILLIAMSON MD
== END 2019-02-05 18:36 | disposition home or self-care (01) ==
LOC: JER 14:26
DX: M62.838 Other muscle spasm (principal); J44.9 Chronic obstructive pulmonary disease, unspecified; F17.210 Nicotine dependence, cigarettes, uncomplicated; F19.10 Other psychoactive substance abuse, uncomplicated; R91.8 Other nonspecific abnormal finding of lung field
CPT/HCPCS: 36415; 71045-TC-FY; 80053; 80307; 85025; 93005; 93010; 99282-25

== ENCOUNTER 2019-02-15 01:25 | Emergency (ER) | payer OTHER | END 2019-02-15 03:49 | disposition left against medical advice (07) | LOC: JER 01:25 ==

== ENCOUNTER 2019-03-18 08:56 | Inpatient (IN) | payer OTHER ==
[2019-03-18 09:12] VITALS: BMI 21.9
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
[2019-03-18] MEDS ORDERED: SODIUM CHLORIDE 1,000 ML IV STA ×2 (10:00→13:40)
[2019-03-18] MEDS ORDERED: ACETAMINOPHEN 1000 MG/100 ML VIAL (NON FORMULARY) IVPB ONE ×2 (10:00→21:05)
[2019-03-18] MEDS ORDERED: ALBUTEROL SO4 2.5/IPRATROPIUM 0.5 INH SOL 3 ML VIAL.NEB. NEB ONE ×2 (10:03→11:17)
[2019-03-18 10:07] LABS: BASO % 0.3 % (0-2.0); EOS % 0.3 % (0-4.5); HEMATOCRIT 42.4 % (35.4-49); HEMOGLOBIN 14.3 GM/dL (11.7-16.9); LYMPH % 3.1 % (8-40); MCH 30.3 pg (25.7-33.7); MCHC 33.8 g/dl (32.0-35.9); MEAN CELL VOLUME 89.8 fl (80-96); MEAN PLT VOLUME 8.1 fl (7.5-11.1); MONO % 2.6 % (3.8-10.2); NEUT % 93.7 % (42.8-82.8); PLATELET COUNT 159 K/MM3 (134-434); RBC 4.72 M/mm3 (4.00-5.60); RDW 14.2 % (11.9-15.9); WHITE BLOOD COUNT 9.7 K/mm3 (4.0-10.0)
[2019-03-18 10:23] LABS: ALBUMIN 3.5 g/dl (3.4-5.0); ALK PHOS 69 U/L (45-117); ANION GAP 5 MMOL/L (8-16); BILIRUBIN,TOTAL 0.6 mg/dL (0.2-1); BLOOD UREA NITROGEN 17 mg/dL (7-18); CALCIUM 8.7 mg/dL (8.5-10.1); CHLORIDE 108 mmol/L (98-107); CO2 26 mmol/L (21-32); CREATININE 0.8 mg/dL (0.55-1.3); GLUCOSE,RANDOM 95 mg/dL (74-106); POTASSIUM 3.9 mmol/L (3.5-5.1); SGOT/AST 24 U/L (15-37); SGPT/ALT 28 U/L (13-61); SODIUM 139 mmol/L (136-145); TOT PROT 6.4 g/dl (6.4-8.2)
[2019-03-18] MEDS ORDERED: ONDANSETRON 4 MG/2 ML VIAL IVPUSH ONE (11:01)
[2019-03-18 11:04] LABS: INR 0.94 (0.83-1.09); PROTHROMBIN TIME (PATIENT) 11.1 SEC (9.7-13.0)
[2019-03-18] MEDS ORDERED: ONDANSETRON 4 MG/2 ML VIAL ONE (11:17)
[2019-03-18] MEDS ORDERED: ACETAMINOPHEN INJECTION 100 ML IVPB ONE (11:17)
[2019-03-18] MEDS ORDERED: methylPREDNISolone NA SUCC 125 MG/2 ML VIAL IVPUSH ONE (13:06)
--- NOTE | 2019-03-18 13:11 | PDOC ---
Documentation entered by Te Bird SCRIBE, acting as scribe for Juanita Rodriguez MD. Juanita Rodriguez MD: This documentation has been prepared by the jimenezibePelon Daniel, SCRIBE, under my direction and personally reviewed by me in its entirety. I confirm that the documentation accurately reflects all work, treatment, procedures, and medical decision making performed by me. Attending Attestation - Resident Resident Name: Juanita Jarrett - ED Attending Attestation I have performed the following: I have examined & evaluated the patient, The case was reviewed & discussed with the resident, I agree w/resident's findings & plan, Exceptions are as noted - HPI HPI: 03/18/19 09:59 The patient is a 43 year old male with a past medical history of COPD here today for evaluation of chest pain and shortness of breath. The patient reports that he woke up this morning with symptoms of 9.5/10, pleuritic chest pain, shortness of breath, myalgia, and general weakness. He also notes a cough productive of brown sputum, headache, and reports that he had no symptoms yesterday. Patient denies lightheadedness. Denies fever, chills. Denies nausea, vomiting, diarrhea, abdominal pain. Denies lower extremity edema. Denies travel, sick contact. Allergies: lactose Social history: Patient confirms tobacco use (20-40 packs a year) and percocet abuse. PCP: Kaleigh Martinez - Physicial Exam PE: GENERAL: Awake, alert, and fully oriented. Appears anxious HEAD: No signs of trauma EYES: PERRLA, EOMI, sclera anicteric, conjunctiva clear ENT: Auricles normal inspection, hearing grossly normal, nares patent, oropharynx clear without exudates. Moist mucosa. No intraoral NECK: Normal ROM, supple, no lymphadenopathy, JVD, or masses LUNGS: Dec air entry B/L. No wheezes, and no crackles HEART: Regular rate and rhythm, normal S1 and S2, no murmurs, rubs or gallops ABDOMEN: Soft, nontender, normoactive bowel sounds. No guarding, no rebound. No masses EXTREMITIES: Normal range of motion, no edema. No clubbing or cyanosis. No cords, erythema, or tenderness NEUROLOGICAL: Cranial nerves II through XII grossly intact. Normal speech, normal gait. Motor and sensation intact SKIN: Warm, Dry, normal turgor. +Flushed skin. - Medical Decision Making In light of recent sulfa drug use, I am concerned this may be a drug reaction, which would explain the flushing and hypotension. Will send labs. Will treat for COPD.
[2019-03-18 13:19] LABS: ANISOCYTOSIS 2+; MACROCYTOSIS 1+; PLATELET ESTIMATE NORMAL
[2019-03-18] MEDS ORDERED: AZITHROMYCIN IVPB 500 MG in DEXTROSE 5%-WATER - 250 ML IVPB ONE (13:41)
[2019-03-18] MEDS ORDERED: AZITHROMYCIN IVPB 500 MG/250 ML BAG IVPB ONE (13:47)
[2019-03-18] MEDS ORDERED: methylPREDNISolone NA SUCC 125 MG/2 ML VIAL ONE (13:57)
--- NOTE | 2019-03-18 15:02 | EKG ---
Test Reason : Blood Pressure : / mmHG Vent. Rate : 092 BPM Atrial Rate : 092 BPM P-R Int : 156 ms QRS Dur : 088 ms QT Int : 336 ms P-R-T Axes : 069 -56 063 degrees QTc Int : 415 ms NORMAL SINUS RHYTHM LEFT AXIS DEVIATION ABNORMAL ECG WHEN COMPARED WITH ECG OF 05-FEB-2019 17:05, QRS AXIS SHIFTED LEFT Confirmed by YENIFER MCKEON MD ([id number]) on 03/18/2019 3:02:28 PM Referred By: Confirmed By:YENIFER MCKEON MD
[2019-03-18] MEDS ORDERED: PNEUMOC 13-VAL CONJ-DIP CRM/PF 0.5 ML DISP.SYRIN IM ONE (19:19)
[2019-03-18] MEDS ORDERED: ALBUTEROL SO4 0.083% IH SOL 2.5 MG/3 ML VIAL.NEB. NEB PRN (21:27)
--- NOTE | 2019-03-18 21:32 | HP ---
Admitting History and Physical - Primary Care Physician PCP: Kaleigh Martinez - Admission Chief Complaint: SOB and chest pain History of Present Illness: Patient is a 43 y/o male with past medical history of COPD, hx of smoking. Patient presented to ER with complaints of SOB, chest pain, weakness, myalgia, and generalized body rash. Patient states that rash began after taking Bactrim. Patient states experiencing SOB and mid chest pain this morning upon awakening. He complains productive cough with yellow colored sputum and pleuritic pain. He states experincing abdominal pain accompanied with nausea, denies vomiting. D-dimer noted to be elevated in ER, Chest CTA performed and negative for PE. History Source: Patient Limitations to Obtaining History: No Limitations - Past Medical History Pulmonary: Yes: COPD Psych: Yes: Addictions Musculoskeletal: Yes: Chronic low back pain - Past Surgical History Past Surgical History: Yes: Hernia Repair, Laminectomy (Lower back surgery, unspecified 2012 ([facility])) - Smoking History Smoking history: Former smoker Have you smoked in the past 12 months: Yes Aproximately how many cigarettes per day: 20 If you are a former smoker, when did you quit?: NOV 2018 - Alcohol/Substance Use Hx Alcohol Use: No History of Substance Use: reports: Heroin, Prescription Date of Last Use: 04/27/15 - Social History Usual Living Arrangement: Yes: Alone ADL: Independent Home Medications - Allergies Allergies/Adverse Reactions: Allergies Allergy/AdvReac Type Severity Reaction Status Date / Time sulfamethoxazole Allergy Severe Rash Verified 03/18/19 14:11 [From Bactrim] trimethoprim [From Bactrim] Allergy Severe Rash Verified 03/18/19 14:10 lactose Allergy Verified 03/18/19 09:50 No Known Drug Allergies Allergy Verified 03/18/19 09:51 - Home Medications Home Medications: Ambulatory Orders Omeprazole 40 mg PO BID 03/18/19 Sulfamethoxazole/Trimethoprim [Sulfamethoxazole-Tmp Ds Tablet] 1 tab PO BID Review of Systems - Review of Systems Constitutional: reports: Weakness Eyes: reports: Blurred Vision Cardiovascular: reports: Chest Pain Respiratory: reports: Cough, SOB Gastrointestinal: reports: Abdominal Pain, Nausea Genitourinary: reports: No Symptoms Breasts: reports: No Symptoms Reported Musculoskeletal: reports: No Symptoms Integumentary: reports: No Symptoms Neurological: reports: No Symptoms Endocrine: reports: No Symptoms Hematology/Lymphatic: reports: No Symptoms Psychiatric: reports: No Symptoms Physical Examination Vital Signs: Vital Signs Temperature 98 F 03/18/19 19:18 Pulse Rate 81 03/18/19 19:18 Respiratory Rate 18 03/18/19 21:00 Blood Pressure 113/61 03/18/19 19:18 O2 Sat by Pulse Oximetry (%) 98 03/18/19 21:00 Constitutional: Yes: No Distress, Calm Eyes: Yes: Conjunctiva Clear HENT: Yes: Atraumatic Neck: Yes: Supple Cardiovascular: Yes: Regular Rate and Rhythm Respiratory: Yes: Regular, Diminished Gastrointestinal: Yes: Normal Bowel Sounds, Soft Musculoskeletal: Yes: WNL Extremities: Yes: WNL Edema: No Integumentary: Yes: Tattoos Neurological: Yes: Alert, Oriented Psychiatric: Yes: Alert, Oriented Labs: CBC, BMP 03/18/19 09:45 03/18/19 09:45 Imaging - Results Chest X-ray: Report Reviewed Cat Scan: Report Reviewed EKG: Report Reviewed Problem List - Problems (1) COPD exacerbation Assessment/Plan: -Pulm consult -albuterol neb -O2 via NC -CXR reviewed -Chest CT shows 3mm calcified granuloma RLL, significant bullous emphysematous changes in upper lobes Code(s): J44.1 - CHRONIC OBSTRUCTIVE PULMONARY DISEASE W (ACUTE) EXACERBATION (2) Chest pain Assessment/Plan: -troponin neg x 1, repeat trop pending -cardiology consult Code(s): R07.9 - CHEST PAIN, UNSPECIFIED (3) Elevated d-dimer Assessment/Plan: -US B/L LE ordered -d-dimer 1132 -chest ct scan neg for PE Code(s): R79.89 - OTHER SPECIFIED ABNORMAL FINDINGS OF BLOOD CHEMISTRY Assessment/Plan see problem list dvt ppx
[2019-03-18] MEDS: PANTOPRAZOLE 40 MG TABLET (FP) PO SCH (22:45)
[2019-03-18] MEDS: HEPARIN NA (PORCINE) 5,000 UNITS/ML 1ML VIAL SQ SCH (22:45)
[2019-03-19] MEDS: ACETAMINOPHEN 325 MG TABLET (FP) PO PRN ×2 (02:21→13:51)
--- NOTE | 2019-03-19 08:35 | PN ---
Progress Note, Physician Chief Complaint: SOB COPD Exacerbation History of Present Illness: Previous notes and events reviewed awake and alert NAD patient states breathing is better, continue with c/o cough - Current Medication List Current Medications: Active Medications Acetaminophen (Tylenol -) 650 mg PO Q6H PRN PRN Reason: PAIN LEVEL 7 - 10 Last Admin: 03/19/19 02:21 Dose: 650 mg Albuterol Sulfate (Ventolin 0.083% Nebulizer Soln -) 1 amp NEB Q6H PRN PRN Reason: SHORT OF BREATH/WHEEZING Heparin Sodium (Porcine) (Heparin -) 5,000 unit SQ BID [facility] Last Admin: 03/18/19 22:45 Dose: 5,000 unit Pantoprazole Sodium (Protonix -) 40 mg PO BID [facility] Last Admin: 03/18/19 22:45 Dose: 40 mg Umeclidinium/Vilanterol (Anoro Ellipta 62.5-25 Mcg Inh) 1 puff IH DAILY [facility] - Objective Vital Signs: Vital Signs Temperature 97.6 F 03/19/19 06:04 Pulse Rate 85 03/19/19 06:04 Respiratory Rate 20 03/19/19 06:04 Blood Pressure 95/65 03/19/19 06:04 O2 Sat by Pulse Oximetry (%) 98 03/18/19 21:00 Constitutional: Yes: No Distress, Calm Eyes: Yes: Conjunctiva Clear HENT: Yes: Atraumatic Cardiovascular: Yes: Regular Rate and Rhythm Respiratory: Yes: Regular, Diminished Gastrointestinal: Yes: Normal Bowel Sounds, Soft Musculoskeletal: Yes: WNL Extremities: Yes: WNL Edema: No Neurological: Yes: Alert, Oriented Psychiatric: Yes: Alert, Oriented Labs: INR, PTT INR 0.94 (0.83-1.09) 03/18/19 09:45 - ....Imaging Ultrasound: Report Reviewed Problem List - Problems (1) COPD exacerbation Assessment/Plan: -Pulm consult -albuterol neb -Anoro Ellipta -O2 via NC -CXR reviewed -Chest CT shows 3mm calcified granuloma RLL, significant bullous emphysematous changes in upper lobes--CT scan from 11/2018 showed calcified 2.5mm nodule in RLL Code(s): J44.1 - CHRONIC OBSTRUCTIVE PULMONARY DISEASE W (ACUTE) EXACERBATION (2) Chest pain Assessment/Plan: -troponin neg x 2 -cardiology consult Code(s): R07.9 - CHEST PAIN, UNSPECIFIED (3) Elevated d-dimer Assessment/Plan: -US B/L LE is negative for DVT -d-dimer 1132 -chest ct scan neg for PE Code(s): R79.89 - OTHER SPECIFIED ABNORMAL FINDINGS OF BLOOD CHEMISTRY Assessment/Plan see problem list dvt ppx
[2019-03-19 08:42] LABS: BASO % 0.1 % (0-2.0); EOS % 0.1 % (0-4.5); HEMATOCRIT 37.8 % (35.4-49); HEMOGLOBIN 12.7 GM/dL (11.7-16.9); LYMPH % 8.1 % (8-40); MCH 30.1 pg (25.7-33.7); MCHC 33.7 g/dl (32.0-35.9); MEAN CELL VOLUME 89.5 fl (80-96); MEAN PLT VOLUME 8.4 fl (7.5-11.1); MONO % 5.4 % (3.8-10.2); NEUT % 86.3 % (42.8-82.8); PLATELET COUNT 162 K/MM3 (134-434); RBC 4.23 M/mm3 (4.00-5.60); RDW 13.9 % (11.9-15.9); WHITE BLOOD COUNT 13.4 K/mm3 (4.0-10.0)
[2019-03-19 09:06] LABS: ALBUMIN 3.4 g/dl (3.4-5.0); ALK PHOS 65 U/L (45-117); AMYLASE 119 U/L (25-115); ANION GAP 4 MMOL/L (8-16); BILIRUBIN,TOTAL 0.4 mg/dL (0.2-1); BLOOD UREA NITROGEN 14 mg/dL (7-18); CHLORIDE 106 mmol/L (98-107); CO2 27 mmol/L (21-32); CREATININE 0.8 mg/dL (0.55-1.3); GLUCOSE,RANDOM 98 mg/dL (74-106); LIPASE 123 U/L (73-393); MAGNESIUM 2.3 mg/dL (1.8-2.4); PHOSPHOROUS 2.8 mg/dL (2.5-4.9); POTASSIUM 4.2 mmol/L (3.5-5.1); SGOT/AST 25 U/L (15-37); SGPT/ALT 28 U/L (13-61); SODIUM 137 mmol/L (136-145); TOT PROT 6.8 g/dl (6.4-8.2)
[2019-03-19] MEDS: HEPARIN NA (PORCINE) 5,000 UNITS/ML 1ML VIAL SQ SCH (09:26)
[2019-03-19] MEDS: PANTOPRAZOLE 40 MG TABLET (FP) PO SCH (09:26)
[2019-03-19] MEDS ORDERED: UMECLIDINIUM/VILANTEROL (ANORO) 62.5/25 MCG INHALER IH SCH (10:00)
--- NOTE | 2019-03-19 11:18 | CON.CARD ---
Consult Consult Specialty:: Cardiology Referred by:: Dr. Martinez Reason for Consultation:: Chest pain - History of Present Illness Chief Complaint: Chest pain History of Present Illness: 43 year-old man, smoker, with a PMHx of COPD presented to ER 03/18/2019 with SOB , chest pain, weakness, and myalgia and generalized body rash. Patient states that rash began after taking Bactrim. Patient states experiencing SOB and mid chest pain yesterday morning upon awakening. He complains productive cough with yellow colored sputum and pleuritic pain. He states experincing abdominal pain accompanied with nausea, denies vomiting. D-dimer noted to be elevated in ER. Chest CTA 03/18/19 showd no PE. LE duplxe was negative for DVT. PR ruled out. ECG showed sinus rhythm, LAD, RBBB. No ST-T abnormalities. He has been stable since admission without recurrent chest pain. Skin rash is almost resolved. - History Source History Provided By: Patient, Medical Record Limitations to Obtaining History: No Limitations - Past Medical History Pulmonary: Yes: COPD Psych: Yes: Addictions Musculoskeletal: Yes: Chronic low back pain - Past Surgical History Past Surgical History: Yes: Hernia Repair, Laminectomy (Lower back surgery, unspecified 2012 ([facility] - Alcohol/Substance Use Hx Alcohol Use: No History of Substance Use: reports: Heroin, Prescription Date of Last Use: 04/27/15 - Smoking History Smoking history: Former smoker Have you smoked in the past 12 months: Yes Aproximately how many cigarettes per day: 20 If you are a former smoker, when did you quit?: NOV 2018 - Social History ADL: Independent Home Medications - Allergies Allergies/Adverse Reactions: Allergies Allergy/AdvReac Type Severity Reaction Status Date / Time sulfamethoxazole Allergy Severe Rash Verified 03/18/19 14:11 [From Bactrim] trimethoprim [From Bactrim] Allergy Severe Rash Verified 03/18/19 14:10 lactose Allergy Verified 03/18/19 09:50 No Known Drug Allergies Allergy Verified 03/18/19 09:51 - Home Medications Home Medications: Ambulatory Orders Omeprazole 40 mg PO BID 03/18/19 Sulfamethoxazole/Trimethoprim [Sulfamethoxazole-Tmp Ds Tablet] 1 tab PO BID Review of Systems - Review of Systems Constitutional: reports: No Symptoms Eyes: reports: No Symptoms HENT: reports: No Symptoms Neck: reports: No Symptoms Cardiovascular: reports: Chest Pain, Shortness of Breath Respiratory: reports: SOB, SOB on Exertion Gastrointestinal: reports: No Symptoms Genitourinary: reports: No Symptoms Breasts: reports: No Symptoms Reported Musculoskeletal: reports: No Symptoms Integumentary: reports: Rash Neurological: reports: No Symptoms Endocrine: reports: No Symptoms Hematology/Lymphatic: reports: No Symptoms Psychiatric: reports: No Symptoms Vital Signs: Vital Signs Temperature 97.6 F 03/19/19 06:04 Pulse Rate 85 03/19/19 06:04 Respiratory Rate 20 03/19/19 06:04 Blood Pressure 95/65 03/19/19 06:04 O2 Sat by Pulse Oximetry (%) 98 03/18/19 21:00 WD, WN, elderly , AAX3, comfortable, NAD. Head: Normocephalic, Atraumatic, Eyes: PERRLA, EOMI, sclerae aniteric and conjunctivae clear. ENT: Oropharynx, nares clear, mucosa moist without pallor or cyanosis Neck: Supple, no JVD, no bruits. No thyromegaly or lymphadenopathy, Heart: Normal S1, S2: regular rate and rhythm, no murmur, gallop or rub. Lungs: Symmetrical poor good air entry and clear to auscultation and percussion. Abdomen: Bowel sound positive. Soft, no tender, no masses, no hepatosplenomegaly. Extremities: No edema, clubbing or cyanosis; peripheral pulses 2+, equal bilaterally. Skin: Rash reolved . Normal turgor. warm and dry, no lesion. - Other Data Labs, Other Data: CBC, BMP 03/19/19 08:10 03/19/19 08:10 INR, PTT INR 0.94 (0.83-1.09) 03/18/19 09:45 Troponin, BNP 03/18/19 03/19/19 22:10 08:10 Troponin I < 0.02 < 0.02 Troponin, BNP 03/18/19 03/19/19 22:10 08:10 Troponin I < 0.02 < 0.02 Assessment/Plan 43 year-old man, smoker, with a PMHx of COPD presented to ER 03/18/2019 with SOB , chest pain, weakness, and myalgia and generalized body rash after taking Bactrim. D-dimer noted to be elevated in ER. Chest CTA 03/18/19 showd no PE. LE duplxe was negative for DVT. PR ruled out. ECG showed sinus rhythm, LAD, RBBB. No ST-T abnormalities. Atypical chest pain in the setting of allergic reaction. No PR or ECG evidence of ischemia. It is not acute coronary syndrome. The patient is safe to be discharged for out-pt cardiac workup. He wants to go home today and sees Dr. Dawson tomorrow in [facility] [facility] office. Please call us for reconsult as needed.
--- NOTE | 2019-03-19 11:30 | CON.PULM ---
Consult Consult Specialty:: PULM/CCM Referred by:: DEWAYNE Reason for Consultation:: SOB - History of Present Illness Chief Complaint: SOB History of Present Illness: 43 M, active smoker with resultant COPD. Denies illicit substance use. Admitted via the ER due to progressive SOB, CP, and myalgia. He was recently prescribed Bactrim and also reports a recent rash. No recent travel history or sick contacts. No night sweats or hemoptysis. He reports productive cough with yellow colored sputum and pleuritic pain. CTA: bilateral bullous emphysema. 3 mm right sided calcified nodule that was measured to be 2.5 mm in 11/2018. No PE. - History Source History Provided By: Patient Limitations to Obtaining History: No Limitations - Past Medical History Pulmonary: Yes: Bronchitis, COPD. No: Asthma, O2 Dependent, Pneumonia, Previously Intubated, Pulmonary Embolus, Pulmonary Fibrosis, Sleep Apnea Psych: Yes: Addictions Musculoskeletal: Yes: Chronic low back pain - Past Surgical History Past Surgical History: Yes: Hernia Repair, Laminectomy (Lower back surgery, unspecified 2012 ([facility])) - Alcohol/Substance Use Hx Alcohol Use: No History of Substance Use: reports: Heroin, Prescription Date of Last Use: 04/27/15 - Smoking History Smoking history: Former smoker Have you smoked in the past 12 months: Yes Aproximately how many cigarettes per day: 20 If you are a former smoker, when did you quit?: NOV 2018 - Social History ADL: Independent Home Medications - Allergies Allergies/Adverse Reactions: Allergies Allergy/AdvReac Type Severity Reaction Status Date / Time sulfamethoxazole Allergy Severe Rash Verified 03/18/19 14:11 [From Bactrim] trimethoprim [From Bactrim] Allergy Severe Rash Verified 03/18/19 14:10 lactose Allergy Verified 03/18/19 09:50 No Known Drug Allergies Allergy Verified 03/18/19 09:51 - Home Medications Home Medications: Ambulatory Orders Omeprazole 40 mg PO BID 03/18/19 Sulfamethoxazole/Trimethoprim [Sulfamethoxazole-Tmp Ds Tablet] 1 tab PO BID Review of Systems - Review of Systems Constitutional: reports: Lethargy, Malaise. denies: Chills, Fever, Night Sweats , Unintentional Wgt. Loss, Weakness Eyes: reports: No Symptoms HENT: reports: No Symptoms Neck: reports: No Symptoms Cardiovascular: reports: Chest Pain, Shortness of Breath. denies: Edema, Palpitations Respiratory: reports: Cough, SOB, SOB on Exertion. denies: Hemoptysis, Orthopnea, Snoring, Wheezing Gastrointestinal: reports: No Symptoms Genitourinary: reports: No Symptoms Breasts: reports: No Symptoms Reported Musculoskeletal: reports: No Symptoms Integumentary: reports: No Symptoms Neurological: reports: No Symptoms Endocrine: reports: No Symptoms Hematology/Lymphatic: reports: No Symptoms Psychiatric: reports: No Symptoms Physical Exam Vital Sings: Vital Signs Temperature 97.6 F 03/19/19 06:04 Pulse Rate 85 03/19/19 06:04 Respiratory Rate 20 03/19/19 06:04 Blood Pressure 95/65 03/19/19 06:04 O2 Sat by Pulse Oximetry (%) 98 03/18/19 21:00 Constitutional: Yes: No Distress, Anxious Eyes: Yes: Conjunctiva Clear, EOM Intact HENT: Yes: Atraumatic, Normocephalic Neck: Yes: Supple, Trachea Midline Cardiovascular: Yes: Regular Rate and Rhythm Respiratory: Yes: CTA Bilaterally, Cough. No: Accessory Muscle Use, Rales, Rhonchi, SOB, SOB on Exertion, Stridor, Tachypnea, Wheezes ...Inspection: Yes: WNL ...Clubbing: No Gastrointestinal: Yes: Normal Bowel Sounds, Soft Renal/: Yes: WNL Musculoskeletal: Yes: WNL Extremities: Yes: WNL Edema: No Peripheral Pulses WNL: Yes Integumentary: Yes: WNL Neurological: Yes: WNL, Alert, Oriented ...Motor Strength: WNL Psychiatric: Yes: WNL, Alert, Oriented Labs: CBC, BMP 03/19/19 08:10 03/19/19 08:10 Imaging - Results Chest X-ray: Report Reviewed, Image Reviewed Cat Scan: Report Reviewed, Image Reviewed Problem List - Problems (1) Calcified granuloma of lung Code(s): J84.10 - PULMONARY FIBROSIS, UNSPECIFIED (2) COPD exacerbation Code(s): J44.1 - CHRONIC OBSTRUCTIVE PULMONARY DISEASE W (ACUTE) EXACERBATION (3) Chest pain Code(s): R07.9 - CHEST PAIN, UNSPECIFIED (4) Elevated d-dimer Code(s): R79.89 - OTHER SPECIFIED ABNORMAL FINDINGS OF BLOOD CHEMISTRY (5) Rash Code(s): R21 - RASH AND OTHER NONSPECIFIC SKIN ERUPTION (6) Insomnia Code(s): G47.00 - INSOMNIA, UNSPECIFIED Qualifiers: Insomnia type: unspecified Qualified Code(s): G47.00 - Insomnia, unspecified (7) Nicotine dependence Code(s): F17.200 - NICOTINE DEPENDENCE, UNSPECIFIED, UNCOMPLICATED Qualifiers: Nicotine product type: cigarettes Substance use status: in withdrawal Qualified Code(s): F17.213 - Nicotine dependence, cigarettes, with withdrawal Assessment/Plan Smoking cessation discussed at length Can be discharged on a LAMA/LABA combination such as Anoro daily Albuterol MDI every 4 hours PRN Prednisone: 40mg OD for 5 days No ABX are indicated According the the Fleischner Society guidelines, he does not meet the criteria for follow CT Chest imaging but due to smoking history can get a 12 month follow up. Outpatient PFTs There is no Pulmonary contraindication for D/C Thank you. Dr Camara
[2019-03-19 15:03] VITALS: BP 109/71; PULSE 78; TEMP 98.3
--- NOTE | 2019-03-19 15:33 | DS ---
Physical Examination Vital Signs: Vital Signs Temperature 98.3 F 03/19/19 15:02 Pulse Rate 78 03/19/19 15:02 Respiratory Rate 18 03/19/19 15:02 Blood Pressure 109/71 03/19/19 15:02 O2 Sat by Pulse Oximetry (%) 100 03/19/19 09:00 Findings/Remarks: Patient is a 43 y/o male with past medical history of COPD, hx of smoking. Patient presented to ER with complaints of SOB, chest pain, weakness, myalgia, and generalized body rash. Patient states that rash began after taking Bactrim. Patient states experiencing SOB and mid chest pain this morning upon awakening. He complains productive cough with yellow colored sputum and pleuritic pain. He states experincing abdominal pain accompanied with nausea, denies vomiting. D-dimer noted to be elevated in ER, Chest CTA performed and negative for PE. Constitutional: Yes: No Distress, Calm Eyes: Yes: Conjunctiva Clear HENT: Yes: Atraumatic Neck: Yes: Supple Cardiovascular: Yes: Regular Rate and Rhythm Respiratory: Yes: Regular, CTA Bilaterally Gastrointestinal: Yes: Normal Bowel Sounds, Soft Musculoskeletal: Yes: WNL Extremities: Yes: WNL Edema: No Neurological: Yes: Alert, Oriented Psychiatric: Yes: Alert, Oriented Labs: CBC, BMP 03/19/19 08:10 03/19/19 08:10 Discharge Summary Reason For Visit: RASH,HYPOXIA,ACUTE EXACERBATION OF COPD Current Active Problems COPD exacerbation (Acute) Calcified granuloma of lung (Acute) Chest pain (Acute) Elevated d-dimer (Acute) Hypoxia (Acute) Rash (Acute) Hospital Course: see progress notes Laboratory Tests 03/18/19 03/18/19 03/18/19 09:45 09:45 09:45 WBC 9.7 RBC 4.72 Hgb 14.3 Hct 42.4 MCV 89.8 MCH 30.3 MCHC 33.8 RDW 14.2 Plt Count 159 MPV 8.1 Absolute Neuts (auto) 9.0 H Neutrophils % 93.7 H D Neutrophils % (Manual) 86.1 H Band Neutrophils % 8.9 Lymphocytes % 3.1 L D Lymphocytes % (Manual) 1.0 L Monocytes % 2.6 L Monocytes % (Manual) 3 L Eosinophils % 0.3 D Eosinophils % (Manual) 0.0 Basophils % 0.3 Basophils % (Manual) 0.0 Myelocytes % (Man) 0 Promyelocytes % (Man) 0 Blast Cells % (Manual) 0 Nucleated RBC % 0 Metamyelocytes 0 Hypochromia 0 Platelet Estimate Normal Polychromasia 0 Poikilocytosis 0 Anisocytosis 2+ Microcytosis 1+ Macrocytosis 1+ PT with INR 11.10 INR 0.94 D-Dimer Sodium 139 Potassium 3.9 Chloride 108 H Carbon Dioxide 26 Anion Gap 5 L BUN 17 Creatinine 0.8 Creat Clearance w eGFR 106.01 Random Glucose 95 Calcium 8.7 Phosphorus Magnesium Total Bilirubin 0.6 AST 24 ALT 28 Alkaline Phosphatase 69 Troponin I < 0.02 Total Protein 6.4 Albumin 3.5 Total Amylase Lipase TSH Influenza A (Rapid) Influenza B (Rapid) 03/18/19 03/18/19 03/18/19 09:45 12:47 22:10 WBC RBC Hgb Hct MCV MCH MCHC RDW Plt Count MPV Absolute Neuts (auto) Neutrophils % Neutrophils % (Manual) Band Neutrophils % Lymphocytes % Lymphocytes % (Manual) Monocytes % Monocytes % (Manual) Eosinophils % Eosinophils % (Manual) Basophils % Basophils % (Manual) Myelocytes % (Man) Promyelocytes % (Man) Blast Cells % (Manual) Nucleated RBC % Metamyelocytes Hypochromia Platelet Estimate Polychromasia Poikilocytosis Anisocytosis Microcytosis Macrocytosis PT with INR INR D-Dimer 1132 H Sodium Potassium Chloride Carbon Dioxide Anion Gap BUN Creatinine Creat Clearance w eGFR Random Glucose Calcium Phosphorus Magnesium Total Bilirubin AST ALT Alkaline Phosphatase Troponin I < 0.02 Total Protein Albumin Total Amylase Lipase TSH Influenza A (Rapid) Negative Influenza B (Rapid) Negative 03/19/19 03/19/19 08:10 08:10 WBC 13.4 H RBC 4.23 Hgb 12.7 Hct 37.8 MCV 89.5 MCH 30.1 MCHC 33.7 RDW 13.9 Plt Count 162 MPV 8.4 Absolute Neuts (auto) 11.6 H Neutrophils % 86.3 H Neutrophils % (Manual) Band Neutrophils % Lymphocytes % 8.1 D Lymphocytes % (Manual) Monocytes % 5.4 D Monocytes % (Manual) Eosinophils % 0.1 Eosinophils % (Manual) Basophils % 0.1 Basophils % (Manual) Myelocytes % (Man) Promyelocytes % (Man) Blast Cells % (Manual) Nucleated RBC % 0 Metamyelocytes Hypochromia Platelet Estimate Polychromasia Poikilocytosis Anisocytosis Microcytosis Macrocytosis PT with INR INR D-Dimer Sodium 137 Potassium 4.2 Chloride 106 Carbon Dioxide 27 Anion Gap 4 L BUN 14 Creatinine 0.8 Creat Clearance w eGFR 106.01 Random Glucose 98 Calcium 9.0 Phosphorus 2.8 Magnesium 2.3 Total Bilirubin 0.4 AST 25 ALT 28 Alkaline Phosphatase 65 Troponin I < 0.02 Total Protein 6.8 Albumin 3.4 Total Amylase 119 H Lipase 123 TSH 1.03 Influenza A (Rapid) Influenza B (Rapid) Active Medications Generic Name Dose Route Start Last Admin Trade Name Freq PRN Reason Stop Dose Admin Acetaminophen 650 mg 03/18/19 21:25 03/19/19 13:51 Tylenol - PO 650 mg Q6H PRN Administration PAIN LEVEL 7 - 10 Albuterol Sulfate 1 amp 03/18/19 21:27 Ventolin 0.083% Nebulizer Soln - NEB Q6H PRN SHORT OF BREATH/WHEEZING Heparin Sodium (Porcine) 5,000 unit 03/18/19 22:00 03/19/19 09:26 Heparin - SQ 5,000 unit BID RAGINI Administration Pantoprazole Sodium 40 mg 03/18/19 22:00 03/19/19 09:26 Protonix - PO 40 mg BID RAGINI Administration Umeclidinium/Vilanterol 1 puff 03/19/19 10:00 03/19/19 09:26 Anoro Ellipta 62.5-25 Mcg Inh IH 1 puff DAILY RAGINI Administration Condition: Stable - Instructions Diet, Activity, Other Instructions: Follow up with PMD in 1 week Follow up with Dr Camara in 1 week continue with current medication regimen return to ER if develop respiratory distress, chest pain, severe pain Referrals: Dayron Camara MD [Staff Physician] - Rolly Dawson MD [Staff Physician] - Disposition: HOME - Home Medications Comprehensive Discharge Medication List: Ambulatory Orders Omeprazole 40 mg PO BID 03/18/19 Sulfamethoxazole/Trimethoprim [Sulfamethoxazole-Tmp Ds Tablet] 1 tab PO BID
== END 2019-03-19 16:57 | disposition home or self-care (01) | DRG 140 ==
LOC: JER 08:56 → JERBED 13:52 → J7W 18:12
PROVIDERS: ADMIT Family Medicine; ATTEND Family Medicine
PROC: 3E0F7GC Introduction of Other Therapeutic Substance into Respiratory Tract, Via Natural or Artificial Opening (ICD-10-PCS; principal; 2019-03-18)
DX: J44.1 Chronic obstructive pulmonary disease with (acute) exacerbation (principal); F11.10 Opioid abuse, uncomplicated; R09.02 Hypoxemia; F17.210 Nicotine dependence, cigarettes, uncomplicated; L27.0 Generalized skin eruption due to drugs and medicaments taken internally; T36.8X5A Adverse effect of other systemic antibiotics, initial encounter; Y92.018 Other place in single-family (private) house as the place of occurrence of the external cause; R07.89 Other chest pain; R51 Headache; G89.29 Other chronic pain; M54.5 Low back pain; I95.9 Hypotension, unspecified; R07.9 Chest pain, unspecified; R79.89 Other specified abnormal findings of blood chemistry; M54.9 Dorsalgia, unspecified; M79.10 Myalgia, unspecified site; R91.1 Solitary pulmonary nodule
CPT/HCPCS: 36415; 71045-TC-FY; 71275-TC; 80053; 82150; 83690; 83735; 84100; 84436; 84443; 84484; 85025; 85379; 85610; 87804; 93005; 93010; 93970-TC; 99285-25; J0131; J1644; J7030

== ENCOUNTER 2019-03-20 17:21 | Observation (INO) | payer OTHER ==
[2019-03-20 17:45] VITALS: BMI 20.3
[2019-03-20] MEDS ORDERED: methylPREDNISolone NA SUCC 125 MG/2 ML VIAL IVPB ONE (18:05)
[2019-03-20] MEDS ORDERED: ALBUTEROL SO4 2.5/IPRATROPIUM 0.5 INH SOL 3 ML VIAL.NEB. NEB ONE ×2 (18:05→18:16)
--- NOTE | 2019-03-20 18:10 | PDOC ---
Rapid Medical Evaluation Chief Complaint: Shortness of Breath Time Seen by Provider: 03/20/19 18:04 Medical Evaluation: Allergies Allergy/AdvReac Type Severity Reaction Status Date / Time sulfamethoxazole Allergy Severe Rash Verified 03/18/19 14:11 [From Bactrim] trimethoprim [From Bactrim] Allergy Severe Rash Verified 03/18/19 14:10 lactose Allergy Verified 03/18/19 09:50 No Known Drug Allergies Allergy Verified 03/18/19 09:51 Vital Signs Temp Pulse Resp BP Pulse Ox 97.5 F L 91 H 20 100/56 L 98 03/20/19 17:41 03/20/19 17:41 03/20/19 17:41 03/20/19 17:41 03/20/19 17:41 03/20/19 18:08 Pt presents to the ED with c/o: sob, hx emphysema, ama recently from [facility], sent for admission under Dr. edwards Pt on brief exam: vss, no wheezing Pt ordered for: labs, miladys paulino Pt to proceed to the ED Discharge Disposition - Diagnosis Shortness of breath - Referrals - Patient Instructions - Post Discharge Activity
[2019-03-20] MEDS ORDERED: methylPREDNISolone NA SUCC 125 MG/2 ML VIAL ONE (18:16)
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
[2019-03-20 18:59] LABS: BASO % 0.4 % (0-2.0); EOS % 0.9 % (0-4.5); HEMATOCRIT 39.7 % (35.4-49); HEMOGLOBIN 13.2 GM/dL (11.7-16.9); LYMPH % 32.8 % (8-40); MCH 30.1 pg (25.7-33.7); MCHC 33.1 g/dl (32.0-35.9); MEAN CELL VOLUME 90.7 fl (80-96); MEAN PLT VOLUME 8.8 fl (7.5-11.1); MONO % 7.1 % (3.8-10.2); NEUT % 58.8 % (42.8-82.8); PLATELET COUNT 174 K/MM3 (134-434); RBC 4.38 M/mm3 (4.00-5.60); RDW 14.5 % (11.9-15.9); WHITE BLOOD COUNT 6.9 K/mm3 (4.0-10.0)
[2019-03-20] MEDS ORDERED: METOCLOPRAMIDE HCL INJECTION 10 MG/2 ML VIAL IVPUSH ONE (19:13)
[2019-03-20 19:26] LABS: ALBUMIN 3.5 g/dl (3.4-5.0); ALK PHOS 75 U/L (45-117); ANION GAP 9 MMOL/L (8-16); BILIRUBIN,TOTAL 0.3 mg/dL (0.2-1); BLOOD UREA NITROGEN 21 mg/dL (7-18); CALCIUM 9.3 mg/dL (8.5-10.1); CHLORIDE 110 mmol/L (98-107); CO2 24 mmol/L (21-32); GLUCOSE,RANDOM 107 mg/dL (74-106); POTASSIUM 4.6 mmol/L (3.5-5.1); SGOT/AST 24 U/L (15-37); SGPT/ALT 31 U/L (13-61); SODIUM 143 mmol/L (136-145); TOT PROT 6.6 g/dl (6.4-8.2)
[2019-03-20] MEDS ORDERED: METOCLOPRAMIDE HCL INJECTION 10 MG/2 ML VIAL ONE (20:19)
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
[2019-03-20] MEDS: NICOTINE 21 MG/24 HOURS TOPICAL PATCH TD SCH (22:57)
[2019-03-21] MEDS ORDERED: ALBUTEROL SO4 2.5/IPRATROPIUM 0.5 INH SOL 3 ML VIAL.NEB. NEB PRN (03:09)
[2019-03-21] MEDS: methylPREDNISolone NA SUCC 40 MG/1 ML VIAL IVPUSH SCH ×3 (03:32→18:35)
[2019-03-21] MEDS ORDERED: METOCLOPRAMIDE HCL INJECTION 10 MG/2 ML VIAL IVPUSH ONE (06:51)
--- NOTE | 2019-03-21 08:42 | HP ---
Admitting History and Physical - Admission History of Present Illness: This is a 43 year old man with a significant past medical history of COPD, Seizures, Chronic Back Pain (Lumbar Sx). Who presents to the ED with complaints of shortness of breath that began x1 week ago. Patient reports leaving AMA from the hospital after getting admitted for COPD exacerbation. He reports experiencing slight shortness of breath this afternoon, prompting him to see his PCP who advised he come back into the ED for further evaluation and admission for COPD exacerbation again. He reports experiencing associated symptoms of pleuritic chest pain that he states is 9/10, general body weakness, rash, nausea, vomiting and head pain that he states is 8/10. Patient denies fevers, chills, AP, diarrhea, constipation. Patient denies recent sick contacts or recent travel. ER course was noted for: (1) Head CT- neg ICH, mass or lesion (2) Chest Xray- no evidence of acute pathology (3) EKG- NSR History Source: Patient Limitations to Obtaining History: No Limitations - Past Medical History Pulmonary: Yes: COPD Psych: Yes: Addictions Musculoskeletal: Yes: Chronic low back pain - Past Surgical History Past Surgical History: Yes: Hernia Repair, Laminectomy (Lower back surgery, unspecified 2012 ([facility] - Smoking History Smoking history: Former smoker Have you smoked in the past 12 months: No Aproximately how many cigarettes per day: 20 If you are a former smoker, when did you quit?: NOV 2018 - Alcohol/Substance Use Hx Alcohol Use: No History of Substance Use: reports: Heroin, Prescription Date of Last Use: 04/27/15 - Social History ADL: Independent History of Recent Travel: No Home Medications - Allergies Allergies/Adverse Reactions: Allergies Allergy/AdvReac Type Severity Reaction Status Date / Time sulfamethoxazole Allergy Severe Rash Verified 03/18/19 14:11 [From Bactrim] trimethoprim [From Bactrim] Allergy Severe Rash Verified 03/18/19 14:10 lactose Allergy Verified 03/18/19 09:50 No Known Drug Allergies Allergy Verified 03/18/19 09:51 - Home Medications Home Medications: Ambulatory Orders Omeprazole 40 mg PO BID 03/18/19 Sulfamethoxazole/Trimethoprim [Sulfamethoxazole-Tmp Ds Tablet] 1 tab PO BID Family Disease History - Family Disease History Family Disease History: Diabetes: Grandparent Other Family History: Maternal Uncle- Stomach Ca. Aunt- Breast Ca Review of Systems - Review of Systems Constitutional: reports: Weakness Eyes: reports: No Symptoms HENT: reports: No Symptoms Neck: reports: No Symptoms Cardiovascular: reports: Chest Pain, Shortness of Breath Respiratory: reports: Cough, SOB, SOB on Exertion Gastrointestinal: reports: No Symptoms Genitourinary: reports: No Symptoms Breasts: reports: No Symptoms Reported Musculoskeletal: reports: Back Pain Integumentary: reports: No Symptoms Neurological: reports: No Symptoms Endocrine: reports: No Symptoms Hematology/Lymphatic: reports: No Symptoms Physical Examination Vital Signs: Vital Signs Temperature 97.6 F 03/21/19 06:00 Pulse Rate 90 03/21/19 06:00 Respiratory Rate 20 03/21/19 06:00 Blood Pressure 125/63 03/21/19 06:00 O2 Sat by Pulse Oximetry (%) 97 03/21/19 04:44 Constitutional: Yes: No Distress, Anxious, Thin Eyes: Yes: WNL, Conjunctiva Clear, EOM Intact, PERRL HENT: Yes: WNL, Atraumatic, Normocephalic Neck: Yes: WNL, Supple, Trachea Midline Cardiovascular: Yes: WNL, Regular Rate and Rhythm, S1, S2 Respiratory: Yes: Cough, Rhonchi Gastrointestinal: Yes: WNL, Normal Bowel Sounds, Soft Renal/: Yes: WNL Breast(s): Yes: WNL Musculoskeletal: Yes: WNL Extremities: Yes: WNL Edema: No Peripheral Pulses WNL: Yes Integumentary: Yes: Tattoos Neurological: Yes: WNL, Alert, Oriented, Cran Nerves II-XII Intact ...Motor Strength: WNL Psychiatric: Yes: WNL, Alert, Oriented Labs: CBC, BMP 03/20/19 18:38 03/20/19 18:35 Imaging - Results Chest X-ray: Report Reviewed, Image Reviewed Cat Scan: Report Reviewed, Image Reviewed EKG: Image Reviewed Problem List - Problems (1) COPD exacerbation Assessment/Plan: Duonebs Appreciate Pulm consult Chest Xray- reviewed Continue Solumederol w/taper Monitor CBC, BMP Monitor vitals O2 Code(s): J44.1 - CHRONIC OBSTRUCTIVE PULMONARY DISEASE W (ACUTE) EXACERBATION (2) Shortness of breath Assessment/Plan: See above Code(s): R06.02 - SHORTNESS OF BREATH (3) Pleuritic chest pain Assessment/Plan: Likely secondary to COPD flare EKG reviewed Troponin neg x1 Code(s): R07.81 - PLEURODYNIA (4) Nicotine dependence Assessment/Plan: Nicotine Patch Code(s): F17.200 - NICOTINE DEPENDENCE, UNSPECIFIED, UNCOMPLICATED Qualifiers: Nicotine product type: cigarettes Substance use status: in withdrawal Qualified Code(s): F17.213 - Nicotine dependence, cigarettes, with withdrawal (5) Benzodiazepine dependence Code(s): F13.20 - SEDATIVE, HYPNOTIC OR ANXIOLYTIC DEPENDENCE, UNCOMPLICATED Assessment/Plan This is a 43 y/o man placed in Observation for Acute COPD Exacerbation for further evaluation of their emergent condition. Plan: See Problem List FEN PO fluids as tolerated Replete lytes prn Low Na Diet DVT ppx OOB SCDs Consider AC if LOS > 48 hrs Dispo: Observation Visit type - Emergency Visit Emergency Visit: Yes ED Registration Date: 03/20/19 Care time: The patient presented to the Emergency Department on the above date and was hospitalized for further evaluation of their emergent condition. - New Patient This patient is new to me today: Yes Date on this admission: 03/21/19 - Critical Care Critical Care patient: No
[2019-03-21 09:38] LABS: BASO % 0.1 % (0-2.0); HEMATOCRIT 40.3 % (35.4-49); HEMOGLOBIN 13.3 GM/dL (11.7-16.9); LYMPH % 12.8 % (8-40); MCH 29.6 pg (25.7-33.7); MCHC 32.9 g/dl (32.0-35.9); MEAN CELL VOLUME 89.9 fl (80-96); MONO % 3.2 % (3.8-10.2); NEUT % 83.9 % (42.8-82.8); PLATELET COUNT 181 K/MM3 (134-434); RBC 4.48 M/mm3 (4.00-5.60); RDW 14.6 % (11.9-15.9); WHITE BLOOD COUNT 6.8 K/mm3 (4.0-10.0)
[2019-03-21 10:10] LABS: ANION GAP 7 MMOL/L (8-16); BLOOD UREA NITROGEN 16 mg/dL (7-18); CHLORIDE 106 mmol/L (98-107); CO2 27 mmol/L (21-32); CREATININE 0.9 mg/dL (0.55-1.3); GLUCOSE,RANDOM 163 mg/dL (74-106); POTASSIUM 4.4 mmol/L (3.5-5.1); SODIUM 140 mmol/L (136-145)
[2019-03-21] MEDS: PANTOPRAZOLE 40 MG TABLET (FP) PO SCH (10:28)
[2019-03-21] MEDS: NICOTINE 21 MG/24 HOURS TOPICAL PATCH TD SCH (10:28)
--- NOTE | 2019-03-21 13:55 | PN ---
Progress Note (short form) - Note Progress Note: PULMONARY CONSULTATION DICTATED 03/21/19 IMP DYSPNEA COPD EXACERBATION CP CALCIFIED GRANULOMA TOBACCO ABUSE PLAN IV STEROIDS INHALED BRONCHODILATORS O2 OUTPATIENT PFTS YEARLY LOW DOSE CHEST CT FOR LUNG CANCER SCREENING SMOKING CESSATION COUNSELED DR GREY Problem List - Problems (1) COPD exacerbation Code(s): J44.1 - CHRONIC OBSTRUCTIVE PULMONARY DISEASE W (ACUTE) EXACERBATION (2) Pleuritic chest pain Code(s): R07.81 - PLEURODYNIA (3) Shortness of breath Code(s): R06.02 - SHORTNESS OF BREATH (4) Calcified granuloma of lung Code(s): J84.10 - PULMONARY FIBROSIS, UNSPECIFIED (5) Tobacco abuse Code(s): Z72.0 - TOBACCO USE (6) Tobacco abuse counseling Code(s): Z71.6 - TOBACCO ABUSE COUNSELING
[2019-03-21] MEDS ORDERED: ALBUTEROL SO4 0.083% IH SOL 2.5 MG/3 ML VIAL.NEB. NEB PRN (14:16)
--- NOTE | 2019-03-21 14:19 | EKG ---
Test Reason : Blood Pressure : / mmHG Vent. Rate : 084 BPM Atrial Rate : 084 BPM P-R Int : 144 ms QRS Dur : 088 ms QT Int : 332 ms P-R-T Axes : 072 -16 070 degrees QTc Int : 392 ms NORMAL SINUS RHYTHM NORMAL ECG WHEN COMPARED WITH ECG OF 18-MAR-2019 09:40, QRS AXIS SHIFTED RIGHT Confirmed by MD MINDY, TAMARA ([id number]) on 03/21/2019 2:19:12 PM Referred By: Confirmed By:TAMARA GUILLEN MD
--- NOTE | 2019-03-21 15:33 | PN ---
Progress Note, Physician Chief Complaint: AWAKE ALERT FEELING BETTER STILL HAS DYSPNEA - Current Medication List Current Medications: Active Medications Albuterol Sulfate (Ventolin 0.083% Nebulizer Soln -) 1 amp NEB Q4H PRN PRN Reason: SHORT OF BREATH/WHEEZING Budesonide/Formoterol Fumarate (Symbicort 160/4.5mcg -) 2 puff IH BID [facility] Methylprednisolone Sodium Succinate (Solu-Medrol -) 40 mg IVPUSH Q8H-IV [facility] Last Admin: 03/21/19 10:28 Dose: 40 mg Nicotine (Nicoderm Patch -) 21 mg TD DAILY [facility] Last Admin: 03/21/19 10:28 Dose: 21 mg Pantoprazole Sodium (Protonix -) 40 mg PO DAILY [facility] Last Admin: 03/21/19 10:28 Dose: 40 mg Tiotropium [place] (Spiriva Respimat) 2 puff IH DAILY [facility] - Objective Vital Signs: Vital Signs Temperature 97.9 F 03/21/19 14:06 Pulse Rate 75 03/21/19 14:06 Respiratory Rate 20 03/21/19 14:06 Blood Pressure 120/72 03/21/19 14:06 O2 Sat by Pulse Oximetry (%) 97 03/21/19 04:44 Constitutional: Yes: Mild Distress Eyes: Yes: WNL HENT: Yes: WNL Neck: Yes: WNL Cardiovascular: Yes: Regular Rate and Rhythm Respiratory: Yes: Diminished, On Nasal O2, SOB on Exertion Gastrointestinal: Yes: WNL Genitourinary: Yes: WNL Musculoskeletal: Yes: WNL Extremities: Yes: WNL Edema: No Peripheral Pulses WNL: Yes Integumentary: Yes: WNL Wound/Incision: Yes: Clean/Dry Neurological: Yes: WNL ...Motor Strength: WNL Psychiatric: Yes: WNL Labs: CBC, BMP 03/21/19 09:25 03/21/19 09:25 Problem List - Problems (1) COPD exacerbation Code(s): J44.1 - CHRONIC OBSTRUCTIVE PULMONARY DISEASE W (ACUTE) EXACERBATION (2) Shortness of breath Code(s): R06.02 - SHORTNESS OF BREATH (3) Tobacco abuse counseling Code(s): Z71.6 - TOBACCO ABUSE COUNSELING Assessment/Plan IV STEROIDS NEBS/02 SUPPORT PPI PULM EVAL TOBACCO CESSATION SPIRIVA OUTPATIENT WITH PFT
--- NOTE | 2019-03-21 16:36 | CONS ---
DATE OF CONSULTATION: 03/21/2019 PULMONARY CONSULTATION REFERRING PHYSICIAN: Kaleigh Martinez M.D. HISTORY OF PRESENT ILLNESS: The patient is a 43-year-old white male with a past medical history of COPD, seizures, chronic back pain, history of tobacco use, stopped a few weeks ago, admitted to [facility] complaining of 1-week history, increasing shortness of breath, dyspnea on exertion, nonproductive cough and chest pain. Patient was recently hospitalized 2 days prior to this admission secondary to COPD. He signed out against medical advice. At home he again started developing increasing shortness of breath, at which time he went to his PCP and was advised to go back to the emergency room. He denied any fever, chills. Did complain of some pleuritic chest pain. Of note, he underwent a CTA of the chest prior to this admission, and it was within normal limits. It showed a small calcified granuloma of 3 mm in the right sided granuloma. Patient has history of tobacco use as stated before and currently still smoking. There is no history of respiratory failure in the past or ventilatory support. He states he has always developed shortness of breath with exertion and wheezing. He denies any fevers, weight loss. Denies , hemoptysis. PAST MEDICAL HISTORY: Again, includes COPD, chronic back pain and seizures. REVIEW OF SYSTEMS: Positive shortness of breath. Positive cough. Positive wheezing. Positive chest pain. No fever, no chills, no weight loss, no night sweats. SOCIAL HISTORY: No occupational exposure. Positive tobacco use. Quit a few weeks ago. No recent travel. CURRENT MEDICATIONS: Current medications include Solu-Medrol, NicoDerm patch, DuoNeb, Protonix. PHYSICAL EXAMINATION: GENERAL: The patient is a thin, white male, awake, alert, in no acute distress. He is afebrile. VITAL SIGNS: Blood pressure 99/63, respiratory rate 20, O2 saturation 97% on room air. HEENT: Normocephalic, atraumatic. NECK: Supple. HEART: Regular S1, S2. CHEST: Few scattered bilateral wheezes. ABDOMEN: Soft, bowel sounds positive. EXTREMITIES: No cyanosis, edema. LABORATORY: WBC is 6.8, hemoglobin 13.3, hematocrit 40.3, with platelet count of 181,000 with 83 polycytes, 12 lymphocytes, 3 monocytes. Chemistries: BUN is 7, creatinine 0.9. Chest x-ray, no infiltrates, no effusions. IMPRESSION: 1. Dyspnea secondary to chronic obstructive pulmonary disease exacerbation. 2. History of tobacco use. 3. Chronic back pain. 4. History of seizures. 5. Right sided calcified granuloma. PLAN: Continue IV steroids. Inhaled bronchodilators. Continue smoking cessation, counseled. He will be advised yearly chest CT as lung cancer screening. Outpatient PFTs. ROGELIO GREY M.D. [id number]
[2019-03-21] MEDS: TIOTROPIUM BROMIDE 2.5 MCG (SPIRIVA) RESPIMAT INHALER IH SCH (16:37)
[2019-03-21] MEDS ORDERED: MELATONIN 5 MG TABLETS PO PRN (20:00)
[2019-03-21] MEDS ORDERED: guaiFENesin 200 MG/10 ML 10 ML UNIT-DOSE CUPS PO PRN (22:03)
[2019-03-21] MEDS ORDERED: ACETAMINOPHEN 500 MG TABLET (FP) PO PRN (22:34)
[2019-03-21] MEDS: BUDESONIDE/FORMETEROL FUMARATE 160/4.5 mcg INHALER IH SCH (22:57)
[2019-03-21] MEDS ORDERED: ZOLPIDEM TARTRATE 5 MG TABLET PO PRN (23:00)
[2019-03-22] MEDS: methylPREDNISolone NA SUCC 40 MG/1 ML VIAL IVPUSH SCH ×2 (03:30→10:19)
--- NOTE | 2019-03-22 09:18 | PN ---
Progress Note, Physician - Current Medication List Current Medications: Active Medications Acetaminophen (Tylenol -) 1,000 mg PO Q6H PRN PRN Reason: PAIN LEVEL 6-10 Last Admin: 03/21/19 23:11 Dose: 1,000 mg Albuterol Sulfate (Ventolin 0.083% Nebulizer Soln -) 1 amp NEB Q4H PRN PRN Reason: SHORT OF BREATH/WHEEZING Budesonide/Formoterol Fumarate (Symbicort 160/4.5mcg -) 2 puff IH BID [facility] Last Admin: 03/21/19 22:57 Dose: 2 puff Guaifenesin (Robitussin -) 10 ml PO Q6H PRN PRN Reason: COUGH Last Admin: 03/21/19 22:57 Dose: 10 ml Melatonin (Melatonin) 5 mg PO HS PRN PRN Reason: INSOMNIA Methylprednisolone Sodium Succinate (Solu-Medrol -) 40 mg IVPUSH Q8H-IV [facility] Last Admin: 03/22/19 03:30 Dose: 40 mg Nicotine (Nicoderm Patch -) 21 mg TD DAILY [facility] Last Admin: 03/21/19 10:28 Dose: 21 mg Pantoprazole Sodium (Protonix -) 40 mg PO DAILY [facility] Last Admin: 03/21/19 10:28 Dose: 40 mg Tiotropium [place] (Spiriva Respimat) 2 puff IH DAILY [facility] Last Admin: 03/21/19 16:37 Dose: 2 puff Zolpidem Tartrate (Ambien -) 5 mg PO HS PRN PRN Reason: INSOMNIA Last Admin: 03/21/19 22:57 Dose: 5 mg - Objective Vital Signs: Vital Signs Temperature 97.7 F 03/22/19 06:00 Pulse Rate 81 03/22/19 06:00 Respiratory Rate 20 03/22/19 06:00 Blood Pressure 117/62 03/22/19 06:00 O2 Sat by Pulse Oximetry (%) 95 03/22/19 03:00 Labs: CBC, BMP 03/21/19 09:25 03/21/19 09:25 Problem List - Problems (1) COPD exacerbation Code(s): J44.1 - CHRONIC OBSTRUCTIVE PULMONARY DISEASE W (ACUTE) EXACERBATION (2) Shortness of breath Code(s): R06.02 - SHORTNESS OF BREATH (3) Tobacco abuse counseling Code(s): Z71.6 - TOBACCO ABUSE COUNSELING
--- NOTE | 2019-03-22 09:28 | DS ---
Physical Examination Vital Signs: Vital Signs Temperature 97.7 F 03/22/19 06:00 Pulse Rate 81 03/22/19 06:00 Respiratory Rate 20 03/22/19 06:00 Blood Pressure 117/62 03/22/19 06:00 O2 Sat by Pulse Oximetry (%) 95 03/22/19 03:00 Constitutional: Yes: No Distress Eyes: Yes: WNL HENT: Yes: WNL Neck: Yes: WNL Cardiovascular: Yes: Regular Rate and Rhythm Respiratory: Yes: WNL Gastrointestinal: Yes: WNL Renal/: Yes: WNL Musculoskeletal: Yes: WNL Edema: No Labs: CBC, BMP 03/21/19 09:25 03/21/19 09:25 Discharge Summary Reason For Visit: SHORTNESS OF BREATH,ACUTE EXCERBATION OF CHRONIC Current Active Problems COPD exacerbation (Acute) Pleuritic chest pain (Acute) Shortness of breath (Acute) Tobacco abuse (Acute) Tobacco abuse counseling (Acute) Procedures: Principal: CXR Hospital Course: SOLUMEDROL IV NEBS 02 SUPPORT FEELING BETTER F/U OUTPATIENT Condition: Guarded - Instructions Diet, Activity, Other Instructions: SEE DR HENRIQUEZ TODAY FOR PREDNISONE TAPER INSTRUCTIONS Disposition: HOME - Home Medications Comprehensive Discharge Medication List: Ambulatory Orders Omeprazole 40 mg PO BID 03/18/19 Acetaminophen [Tylenol .Extra-Strength -] 1,000 mg PO Q6H PRN tablet 03/22/19 Albuterol 2.5/Ipratropium 0.5 [Duoneb -] 1 amp NEB Q6H PRN amp 03/22/19 Budesonide/Formeterol Fumarate [SYMBICORT 160/4.5mcg -] 2 puff IH BID #2 inhaler 03/22/19 Guaifenesin [Robitussin -] 10 ml PO Q6H PRN #500 cup 03/22/19 Melatonin 5 mg PO HS PRN tab 03/22/19 Nicotine Patch [Nicoderm Patch -] 21 mg TD DAILY #30 patch 03/22/19 Pantoprazole Sodium [Protonix -] 40 mg PO DAILY #30 tablet.ec 03/22/19 Tiotropium [place] [Spiriva Respimat] 2 puff IH DAILY #1 inhaler 03/22/19
[2019-03-22 09:52] VITALS: BP 103/62; PULSE 75; TEMP 97.4
[2019-03-22] MEDS: PANTOPRAZOLE 40 MG TABLET (FP) PO SCH (10:19)
[2019-03-22] MEDS: NICOTINE 21 MG/24 HOURS TOPICAL PATCH TD SCH (10:19)
[2019-03-22] MEDS: BUDESONIDE/FORMETEROL FUMARATE 160/4.5 mcg INHALER IH SCH (10:20)
[2019-03-22] MEDS: TIOTROPIUM BROMIDE 2.5 MCG (SPIRIVA) RESPIMAT INHALER IH SCH (10:20)
--- NOTE | 2019-03-22 11:00 | PN ---
Progress Note, Physician History of Present Illness: pulmonary alert,ambulating well w/o sob - Current Medication List Current Medications: Active Medications Acetaminophen (Tylenol -) 1,000 mg PO Q6H PRN PRN Reason: PAIN LEVEL 6-10 Last Admin: 03/21/19 23:11 Dose: 1,000 mg Albuterol Sulfate (Ventolin 0.083% Nebulizer Soln -) 1 amp NEB Q4H PRN PRN Reason: SHORT OF BREATH/WHEEZING Budesonide/Formoterol Fumarate (Symbicort 160/4.5mcg -) 2 puff IH BID [facility] Last Admin: 03/22/19 10:20 Dose: 2 puff Guaifenesin (Robitussin -) 10 ml PO Q6H PRN PRN Reason: COUGH Last Admin: 03/21/19 22:57 Dose: 10 ml Melatonin (Melatonin) 5 mg PO HS PRN PRN Reason: INSOMNIA Methylprednisolone Sodium Succinate (Solu-Medrol -) 40 mg IVPUSH Q8H-IV [facility] Last Admin: 03/22/19 10:19 Dose: 40 mg Nicotine (Nicoderm Patch -) 21 mg TD DAILY [facility] Last Admin: 03/22/19 10:19 Dose: 21 mg Pantoprazole Sodium (Protonix -) 40 mg PO DAILY [facility] Last Admin: 03/22/19 10:19 Dose: 40 mg Tiotropium [place] (Spiriva Respimat) 2 puff IH DAILY [facility] Last Admin: 03/22/19 10:20 Dose: 2 puff Zolpidem Tartrate (Ambien -) 5 mg PO HS PRN PRN Reason: INSOMNIA Last Admin: 03/21/19 22:57 Dose: 5 mg - Objective Vital Signs: Vital Signs Temperature 97.4 F L 03/22/19 09:05 Pulse Rate 75 03/22/19 09:05 Respiratory Rate 18 03/22/19 09:05 Blood Pressure 103/62 03/22/19 09:05 O2 Sat by Pulse Oximetry (%) 95 03/22/19 03:00 Constitutional: Yes: Well Nourished, Calm Eyes: Yes: WNL HENT: Yes: WNL Neck: Yes: WNL Cardiovascular: Yes: Regular Rate and Rhythm, S1, S2 Respiratory: Yes: CTA Bilaterally Gastrointestinal: Yes: Normal Bowel Sounds, Soft Extremities: Yes: WNL Edema: No Labs: Problem List - Problems (1) COPD exacerbation Code(s): J44.1 - CHRONIC OBSTRUCTIVE PULMONARY DISEASE W (ACUTE) EXACERBATION (2) Pleuritic chest pain Code(s): R07.81 - PLEURODYNIA (3) Shortness of breath Code(s): R06.02 - SHORTNESS OF BREATH (4) Calcified granuloma of lung Code(s): J84.10 - PULMONARY FIBROSIS, UNSPECIFIED (5) Tobacco abuse Code(s): Z72.0 - TOBACCO USE (6) Tobacco abuse counseling Code(s): Z71.6 - TOBACCO ABUSE COUNSELING Assessment/Plan IMP DYSPNEA IMPROVED COPD EXACERBATION IMPROVED CP CALCIFIED GRANULOMA TOBACCO ABUSE PLAN PREDNISONE WITH TAPER INHALED BRONCHODILATORS O2 OUTPATIENT PFTS YEARLY LOW DOSE CHEST CT FOR LUNG CANCER SCREENING SMOKING CESSATION COUNSELED DR GREY Problem List - Problems (1) COPD exacerbation Code(s): J44.1 - CHRONIC OBSTRUCTIVE PULMONARY DISEASE W (ACUTE) EXACERBATION (2) Pleuritic chest pain Code(s): R07.81 - PLEURODYNIA (3) Shortness of breath Code(s): R06.02 - SHORTNESS OF BREATH (4) Calcified granuloma of lung Code(s): J84.10 - PULMONARY FIBROSIS, UNSPECIFIED (5) Tobacco abuse Code(s): Z72.0 - TOBACCO USE (6) Tobacco abuse counseling Code(s): Z71.6 - TOBACCO ABUSE COUNSELING
== END 2019-03-22 12:00 | disposition home or self-care (01) ==
LOC: JER 17:21 → JERBED 23:55 → J5S 03-21 04:22
PROVIDERS: ADMIT Family Medicine; ATTEND Family Medicine
PROC: 3E0333Z Introduction of Anti-inflammatory into Peripheral Vein, Percutaneous Approach (ICD-10-PCS; principal; 2019-03-20)
PROC: 3E033GC Introduction of Other Therapeutic Substance into Peripheral Vein, Percutaneous Approach (ICD-10-PCS; 2019-03-20)
PROC: 3E0F7GC Introduction of Other Therapeutic Substance into Respiratory Tract, Via Natural or Artificial Opening (ICD-10-PCS; 2019-03-20)
DX: J44.1 Chronic obstructive pulmonary disease with (acute) exacerbation (principal); R06.02 Shortness of breath; R07.81 Pleurodynia; J84.10 Pulmonary fibrosis, unspecified; F13.20 Sedative, hypnotic or anxiolytic dependence, uncomplicated; F17.213 Nicotine dependence, cigarettes, with withdrawal; M54.5 Low back pain; G89.29 Other chronic pain; Z86.69 Personal history of other diseases of the nervous system and sense organs; Z88.2 Allergy status to sulfonamides; Z88.1 Allergy status to other antibiotic agents; Z91.011 Allergy to milk products; Z71.6 Tobacco abuse counseling
CPT/HCPCS: 36415; 70450-TC; 71045-TC-FY; 80048; 80053; 84484; 85025; 93005; 93010; 94640; 96374; 96375; 96376; 99284-25; G0378

== ENCOUNTER 2019-03-26 15:21 | Emergency (ER) | payer OTHER ==
[2019-03-26 15:38] VITALS: BP 107/64; PULSE 66; TEMP 97.9; BMI 21.1
[2019-03-26] MEDS ORDERED: predniSONE 20 MG TABLET (UD) PO ONE (15:58)
[2019-03-26] MEDS ORDERED: ALBUTEROL SO4 2.5/IPRATROPIUM 0.5 INH SOL 3 ML VIAL.NEB. NEB ONE ×2 (15:58→16:51)
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
[2019-03-26] MEDS ORDERED: predniSONE 20 MG TABLET (UD) ONE (16:51)
--- NOTE | 2019-03-26 17:06 | PDOC ---
Documentation entered by Te Bird SCRIBE, acting as scribe for Himanshu Hooper MD. Himanshu Hooper MD: This documentation has been prepared by the jimenezibePelon Daniel, SCRIBE, under my direction and personally reviewed by me in its entirety. I confirm that the documentation accurately reflects all work, treatment, procedures, and medical decision making performed by me. Attending Attestation - Resident Resident Name: Jesus Alberto Duronel - ED Attending Attestation I have performed the following: I have examined & evaluated the patient, The case was reviewed & discussed with the resident, I agree w/resident's findings & plan, Exceptions are as noted - HPI HPI: 03/26/19 16:00 The patient is a 43 year old male with a past medical history of COPD and former smoker (1 ppd for the past 20 years) here today for evaluation of worsening shortness of breath. The patient reports that he has been having worsening shortness of breath and cough for the past few days. He reports being seen in the past for similar symptoms. Patient denies headache, lightheadedness. Denies fever, chills. Denies chest pain. Denies nausea, vomiting, diarrhea, abdominal pain. Allergies: sulfamethoxazole, trimethoprim, lactose PCP: Kaleigh Martinez - Physicial Exam PE: 03/26/19 16:03 GENERAL: Awake, alert, and fully oriented, in no acute distress HEAD: No signs of trauma EYES: EOMI, sclera anicteric, conjunctiva clear ENT: Auricles normal inspection, hearing grossly normal, nares patent, Moist mucosa NECK: Normal ROM, supple, LUNGS: Breath sounds equal and clear but with short excursion. Speaking in full sentences. HEART: Regular rate and rhythm, normal S1 and S2, no murmurs, rubs or gallops EXTREMITIES: Normal range of motion, no edema. No clubbing or cyanosis. No cords, erythema, or tenderness NEUROLOGICAL: Cranial nerves II through XII grossly intact. Normal speech, normal gait SKIN: Warm, Dry, normal turgor, no rashes or lesions noted. - Medical Decision Making 03/26/19 16:05 A portion of this note was documented by [facility] under my direction. I have reviewed the details of the note, within reason, and agree with the documentation with the following case summary and management plan written by me. Patient treated in the ED. Nursing notes are reviewed and incorporated into the medical decision-making. Vital signs reviewed. Vital Signs Temp Pulse Resp BP Pulse Ox 97.9 F 66 18 107/64 99 03/26/19 15:34 03/26/19 15:34 03/26/19 15:34 03/26/19 15:34 03/26/19 15:34 43-year-old male with history of COPD presents with COPD exacerbation. Patient was recently discharged from in hospitalization for wheezing. Patient reports that the symptoms are not quite as bad as last time but does report that he has not started taking his steroid. This morning, he felt fluid chest tightness and wheezing reminiscence of his COPD was speaking full sentences. Patient came to the ER for further evaluation. No fevers or chills. Denies chest pain. The patient's generally nontoxic appearing and with likely mild COPD exacerbation. At this time, the patient speaking in full sentences and breathing comfortably 99% on room air. We'll give some duonabs, give prednisone and obtain chest x-ray. The chest history dementia is no acute findings and the patient reports feeling better, the patient be discharged home with steroids and albuterol. 03/26/19 17:04 Chest xray reviewed by me, pending official radiology read. No infiltrates. If patient is feeling better after the medications, he can be discharged home.
== END 2019-03-26 17:44 | disposition home or self-care (01) ==
LOC: JER 15:21
PROC: 3E0F7GC Introduction of Other Therapeutic Substance into Respiratory Tract, Via Natural or Artificial Opening (ICD-10-PCS; principal; 2019-03-26)
DX: J44.1 Chronic obstructive pulmonary disease with (acute) exacerbation (principal); Z86.69 Personal history of other diseases of the nervous system and sense organs; J43.8 Other emphysema; Z87.891 Personal history of nicotine dependence
CPT/HCPCS: 71046-TC-FY; 94640; 99281-25

== ENCOUNTER 2019-06-10 06:29 | Emergency (ER) | payer OTHER ==
[2019-06-10 06:59] VITALS: BMI 21.9
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
[2019-06-10] MEDS ORDERED: ACETAMINOPHEN 1000 MG/100 ML VIAL (NON FORMULARY) IVPB ONE (07:34)
[2019-06-10] MEDS ORDERED: ACETAMINOPHEN INJECTION 100 ML IVPB ONE (07:49)
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
[2019-06-10] MEDS ORDERED: LIDOCAINE 5% TOPICAL PATCH TP ONE (08:15)
[2019-06-10] MEDS ORDERED: CYCLOBENZAPRINE HCL 5 MG TABLET PO ONE (08:15)
[2019-06-10] MEDS ORDERED: LIDOCAINE 5% TOPICAL PATCH ONE (08:34)
[2019-06-10] MEDS ORDERED: CYCLOBENZAPRINE HCL 10 MG TABLET (FP) ONE (08:34)
[2019-06-10 08:58] LABS: ALBUMIN 3.3 g/dl (3.4-5.0); ALK PHOS 71 U/L (45-117); ANION GAP 6 MMOL/L (8-16); BILIRUBIN,TOTAL 0.6 mg/dL (0.2-1); BLOOD UREA NITROGEN 14.7 mg/dL (7-18); CALCIUM 8.4 mg/dL (8.5-10.1); CHLORIDE 107 mmol/L (98-107); CO2 27 mmol/L (21-32); CREATININE 0.8 mg/dL (0.55-1.3); GLUCOSE,RANDOM 95 mg/dL (74-106); POTASSIUM 3.9 mmol/L (3.5-5.1); SGOT/AST 25 U/L (15-37); SGPT/ALT 32 U/L (13-61); SODIUM 140 mmol/L (136-145); TOT PROT 6.1 g/dl (6.4-8.2)
[2019-06-10] MEDS ORDERED: KETAMINE HCL 200 MG/20 ML VIAL IVPB ONE ×2 (09:02)
[2019-06-10 09:16] LABS: BASO % 0.3 % (0-2.0); EOS % 0.2 % (0-4.5); HEMATOCRIT 37.2 % (35.4-49); HEMOGLOBIN 12.5 GM/dL (11.7-16.9); LYMPH % 19.9 % (8-40); MCH 30.1 pg (25.7-33.7); MCHC 33.7 g/dl (32.0-35.9); MEAN CELL VOLUME 89.3 fl (80-96); MEAN PLT VOLUME 8.4 fl (7.5-11.1); MONO % 9.4 % (3.8-10.2); NEUT % 70.2 % (42.8-82.8); PLATELET COUNT 176 K/MM3 (134-434); RBC 4.17 M/mm3 (4.00-5.60); RDW 14.3 % (11.9-15.9); WHITE BLOOD COUNT 9.9 K/mm3 (4.0-10.0)
[2019-06-10] MEDS ORDERED: KETAMINE HCL 200 MG/20 ML VIAL ONE (09:19)
[2019-06-10 09:27] LABS: INR 0.97 (0.83-1.09); PROTHROMBIN TIME (PATIENT) 11.5 SEC (9.7-13.0)
[2019-06-10 11:54] VITALS: BP 92/63; PULSE 44; TEMP 97.6
[2019-06-10] MEDS ORDERED: LIDOCAINE PATCH REMOVAL MC SCH (22:00)
== END 2019-06-10 14:02 | disposition home or self-care (01) ==
LOC: JER 06:29
PROC: 3E033NZ Introduction of Analgesics, Hypnotics, Sedatives into Peripheral Vein, Percutaneous Approach (ICD-10-PCS; principal; 2019-06-10)
DX: Z04.1 Encounter for examination and observation following transport accident (principal); V86.59XA Driver of other special all-terrain or other off-road motor vehicle injured in nontraffic accident, initial encounter; Y93.89 Activity, other specified; Y92.9 Unspecified place or not applicable; Z87.891 Personal history of nicotine dependence; J44.9 Chronic obstructive pulmonary disease, unspecified
CPT/HCPCS: 36415; 70450-TC; 71260-TC; 72125-TC; 72128-TC; 72131-TC; 73523-TC-FY; 73562-TC-LT-FY; 73610-TC-RT-FY; 73630-TC-RT-FY; 74177-TC; 76604; 76705-TC; 80053; 80307; 82550; 82553; 84484; 85025; 85610; 93308; 96374; 96375; 99283-25; J0131

== ENCOUNTER 2019-07-07 13:55 | Emergency (ER) | payer OTHER ==
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
[2019-07-07 14:04] VITALS: BP 122/73; PULSE 89; TEMP 98.5; BMI 21.9
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
== END 2019-07-07 15:33 | disposition home or self-care (01) ==
LOC: JERFT 13:55
DX: Y04.2XXA Assault by strike against or bumped into by another person, initial encounter (principal); Y93.9 Activity, unspecified; Y92.9 Unspecified place or not applicable; Z87.891 Personal history of nicotine dependence
CPT/HCPCS: 99281-25

== ENCOUNTER 2019-12-19 21:18 | Emergency (ER) | payer OTHER ==
[2019-12-19 21:26] VITALS: BP 113/50; PULSE 86; TEMP 98.3; BMI 21.9
--- NOTE | 2019-12-19 21:27 | PDOC ---
Rapid Medical Evaluation Chief Complaint: Laceration Time Seen by Provider: 12/19/19 21:24 Medical Evaluation: Allergies Allergy/AdvReac Type Severity Reaction Status Date / Time sulfamethoxazole Allergy Severe Rash Verified 03/26/19 15:38 [From Bactrim] trimethoprim [From Bactrim] Allergy Severe Rash Verified 03/26/19 15:38 lactose Allergy Verified 03/26/19 15:38 No Known Drug Allergies Allergy Verified 03/18/19 09:51 12/19/19 21:24 I have performed a brief in-person evaluation of this patient. The patient presents with a chief complaint of: laceration to right anterior lower leg s/p jamping around in the house and hitting aguilar of right leg on concrete floor down stairs. Denies head trauma or syncope. report last tetanus vaccine is 6 months ago Pertinent physical exam findings: 1cm deep laceration with bleeding to aguilar of anterior lower leg. small abrasions to right lower leg I have ordered the following: nothing The patient will proceed to the ED for further evaluation. Discharge Disposition - Diagnosis Laceration of right lower leg Qualifiers: Encounter type: initial encounter Qualified Code(s): S81.811A - Laceration without foreign body, right lower leg, initial encounter - Discharge Dispostion Condition at time of disposition: Stable - Referrals - Patient Instructions - Post Discharge Activity
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
[2019-12-19] MEDS ORDERED: DIPHTH,PERTUSS(ACELL),TET 0.5 ML DISP.SYRIN IM ONE ×2 (23:01→23:10)
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
== END 2019-12-20 00:01 | disposition home or self-care (01) ==
LOC: JER 21:18 → JERFT 21:18 → JER 12-20 00:01
PROC: 3E0234Z Introduction of Serum, Toxoid and Vaccine into Muscle, Percutaneous Approach (ICD-10-PCS; principal; 2019-12-19)
DX: S81.811A Laceration without foreign body, right lower leg, initial encounter (principal); W17.89XA Other fall from one level to another, initial encounter; Y93.89 Activity, other specified; Y92.018 Other place in single-family (private) house as the place of occurrence of the external cause; Y99.8 Other external cause status; F11.10 Opioid abuse, uncomplicated; J43.9 Emphysema, unspecified; Z88.2 Allergy status to sulfonamides; E73.9 Lactose intolerance, unspecified
CPT/HCPCS: 73590-TC-RT-FY; 90471; 90715; 99281-25

== ENCOUNTER 2021-08-23 11:45 | Emergency (ER) | payer OTHER ==
[2021-08-23 12:29] VITALS: BP 110/68; PULSE 57; TEMP 98.2; BMI 20.3
[2021-08-23] MEDS ORDERED: LACTATED RINGERS SOLUTION 1000 ML INFUS.BAG IV ONE (13:30)
[2021-08-23] MEDS ORDERED: ALBUTEROL SO4 HFA INHALER IH ONE ×2 (13:34→14:12)
[2021-08-23] MEDS ORDERED: ACETAMINOPHEN 325 MG TABLET (FP) PO ONE (13:35)
[2021-08-23 14:10] LABS: VENOUS BASE EXCESS -0.8 mmol/L (-2-2); VENOUS O2 SATURATION 18.4 % (70-80); VENOUS PCO2 50.7 mmHg (38-52); VENOUS PH 7.326 (7.310-7.410)
[2021-08-23] MEDS ORDERED: ACETAMINOPHEN 325 MG TABLET (FP) ONE (14:12)
[2021-08-23 14:59] LABS: BASO % 0.7 % (0-2.0); HEMATOCRIT 41.4 % (35.4-49); HEMOGLOBIN 13.9 GM/dL (11.7-16.9); LYMPH % 28.3 % (8-40); MCH 27.6 pg (25.7-33.7); MCHC 33.5 g/dl (32.0-35.9); MEAN CELL VOLUME 82.4 fl (80-96); MEAN PLT VOLUME 7.9 fl (7.5-11.1); MONO % 18.3 % (3.8-10.2); NEUT % 52.7 % (42.8-82.8); PLATELET COUNT 200 10^3/uL (134-434); RBC 5.02 M/mm3 (4.00-5.60); RDW 15.5 % (11.9-15.9); WHITE BLOOD COUNT 3.7 K/mm3 (4.0-10.0)
[2021-08-23 16:31] LABS: PH,URINE 6.5 (5.0-8.0); URINE APPEARANCE CLEAR; URINE BILIRUBIN NEGATIVE (NEGATIVE); URINE COLOR YELLOW; URINE GLUCOSE (UA) NEGATIVE (NEGATIVE); URINE KETONE NEGATIVE (NEGATIVE); URINE LEUK ESTERASE NEGATIVE (NEGATIVE); URINE NITRITE NEGATIVE (NEGATIVE); URINE PROTEIN NEGATIVE (NEGATIVE); URINE UROBILINOGEN 0.2 mg/dL (0.2-1.0)
[2021-08-23 16:45] LABS: ALBUMIN 3.7 g/dl (3.4-5.0); BLOOD UREA NITROGEN 8.7 mg/dL (7-18); CALCIUM 9.2 mg/dL (8.5-10.1); CHLORIDE 103 mmol/L (98-107); CO2 30 mmol/L (21-32); CREATININE 0.8 mg/dL (0.55-1.3); GLUCOSE,RANDOM 100 mg/dL (74-106); MAGNESIUM 2.5 mg/dL (1.8-2.4); SODIUM 137 mmol/L (136-145); TOT PROT 7.5 g/dl (6.4-8.2)
[2021-08-23 16:46] LABS: ALK PHOS 68 U/L (45-117); BILIRUBIN,TOTAL 0.6 mg/dL (0.2-1); SGOT/AST 22 U/L (15-37); SGPT/ALT 28 U/L (13-61)
[2021-08-23 16:47] LABS: ANION GAP 4 MMOL/L (8-16)
== END 2021-08-23 17:05 | disposition home or self-care (01) ==
LOC: JER 11:45
DX: R05.1 Acute cough (principal); R07.9 Chest pain, unspecified
CPT/HCPCS: 36415; 71046-TC-FY; 80053; 81003; 82803; 83735; 84484; 85025; 87086; 87804; 93005; 93010; 99285-25; C9803; U0003; U0005

== ENCOUNTER 2021-11-06 12:10 | Inpatient (IN) | payer OTHER ==
[2021-11-06] MEDS ORDERED: methaDONE HCL 10 MG TABLET (FOR DETOX USE ONLY) PO ONE (12:40)
[2021-11-06] MEDS ORDERED: MENTHOL/PHENOL 1 EACH UD MM PRN (12:40)
[2021-11-06] MEDS ORDERED: cloNIDine HCL 0.1 MG TABLET PO PRN (12:40)
[2021-11-06] MEDS ORDERED: BISMUTH SUBSALICYLATE 262 MG/15 ML BTL PO PRN (12:40)
[2021-11-06] MEDS ORDERED: NICOTINE 10 MG CARTRIDGE (INHALER) IH PRN (12:40)
[2021-11-06] MEDS ORDERED: MAGNESIUM HYDROX 2400MG/30ML ORAL SUSPENSION 30 ML CUP PO PRN (12:40)
[2021-11-06] MEDS ORDERED: MAGNESIUM CITRATE 300 ML BOTTLE PO PRN (12:40)
[2021-11-06] MEDS ORDERED: METHOCARBAMOL 500 MG TABLET PO PRN (12:40)
[2021-11-06] MEDS ORDERED: IBUPROFEN 400 MG TABLET (FP) PO PRN (12:40)
[2021-11-06] MEDS ORDERED: ONDANSETRON *ODT* 4 MG TABLET SL PRN (12:40)
[2021-11-06] MEDS ORDERED: ACETAMINOPHEN 325 MG TABLET (FP) PO PRN ×2 (12:40)
[2021-11-06] MEDS ORDERED: MAG HYDROX/AL HYDROX/SIMETH 30 ML UNIT-DOSE CUP PO PRN (12:40)
[2021-11-06 13:07] VITALS: BMI 20.3
[2021-11-06] MEDS: hydrOXYzine PAMOATE 25 MG CAPSULE (FP) PO SCH ×3 (14:20→22:42)
[2021-11-06] MEDS: diazePAM 5 MG TABLET PO PRN (14:21)
[2021-11-06] MEDS: PRENATAL VITAMINS W/ FOLIC ACID TABLET (FP) PO SCH (14:24)
[2021-11-06 16:09] LABS: HEMATOCRIT 40.8 % (35.4-49); HEMOGLOBIN 13.6 GM/dL (11.7-16.9); MCH 28.7 pg (25.7-33.7); MCHC 33.3 g/dl (32.0-35.9); MEAN CELL VOLUME 86.2 fl (80-96); MEAN PLT VOLUME 8.2 fl (7.5-11.1); PLATELET COUNT 239 10^3/uL (134-434); RBC 4.73 M/mm3 (4.00-5.60); RDW 14.5 % (11.9-15.9); WHITE BLOOD COUNT 7.3 K/mm3 (4.0-10.0)
[2021-11-06 16:12] LABS: CALCIUM 9.5 mg/dL (8.5-10.1)
[2021-11-06 16:13] LABS: ALBUMIN 3.9 g/dl (3.4-5.0); BLOOD UREA NITROGEN 11.8 mg/dL (7-18)
[2021-11-06 16:16] LABS: CREATININE 0.9 mg/dL (0.55-1.3)
[2021-11-06 16:17] LABS: TOT PROT 7.2 g/dl (6.4-8.2)
[2021-11-06 16:18] LABS: BILIRUBIN,TOTAL 0.4 mg/dL (0.2-1)
[2021-11-06] MEDS ORDERED: THIAMINE HCL 100 MG TABLET (FP) PO SCH (22:00)
[2021-11-06] MEDS ORDERED: MELATONIN 5 MG TABLETS PO SCH (22:00)
[2021-11-06] MEDS: BUDESONIDE/FORMETEROL FUMARATE 160/4.5 mcg INHALER IH SCH (22:48)
[2021-11-07] MEDS: hydrOXYzine PAMOATE 25 MG CAPSULE (FP) PO SCH ×3 (05:30→13:23)
[2021-11-07] MEDS ORDERED: methaDONE HCL 10 MG TABLET (FOR DETOX USE ONLY) ONE (09:00)
[2021-11-07] MEDS: BUDESONIDE/FORMETEROL FUMARATE 160/4.5 mcg INHALER IH SCH (09:11)
[2021-11-07] MEDS: PRENATAL VITAMINS W/ FOLIC ACID TABLET (FP) PO SCH (09:11)
[2021-11-07] MEDS: diazePAM 5 MG TABLET PO PRN (09:12)
[2021-11-07] MEDS ORDERED: TIOTROPIUM BROMIDE 2.5 MCG (SPIRIVA) RESPIMAT INHALER IH SCH (10:00)
[2021-11-07 17:38] VITALS: PULSE 72; TEMP 98.2
[2021-11-07 18:56] VITALS: BP 111/78
[2021-11-08] MEDS ORDERED: methaDONE HCL 10 MG TABLET (FOR DETOX USE ONLY) PO ONE (10:00)
[2021-11-10] MEDS ORDERED: methaDONE HCL 10 MG TABLET (FOR DETOX USE ONLY) PO ONE (10:00)
== END 2021-11-07 05:35 | disposition left against medical advice (07) | DRG 770 ==
LOC: YASAS 12:10 → Y6N 13:25
PROVIDERS: ADMIT Allergy & Immunology; ATTEND Allergy & Immunology
PROC: HZ2ZZZZ Detoxification Services for Substance Abuse Treatment (ICD-10-PCS; principal; 2021-11-06)
DX: F11.23 Opioid dependence with withdrawal (principal); F12.10 Cannabis abuse, uncomplicated; F17.213 Nicotine dependence, cigarettes, with withdrawal; F19.24 Other psychoactive substance dependence with psychoactive substance-induced mood disorder; F19.282 Other psychoactive substance dependence with psychoactive substance-induced sleep disorder; F19.280 Other psychoactive substance dependence with psychoactive substance-induced anxiety disorder; J44.9 Chronic obstructive pulmonary disease, unspecified; M54.59 Other low back pain; G89.29 Other chronic pain; Z88.1 Allergy status to other antibiotic agents; Z88.2 Allergy status to sulfonamides; Z91.011 Allergy to milk products; Z56.0 Unemployment, unspecified
CPT/HCPCS: 36415; 80053; 85027; 86780; C9803; J0735; U0003; U0005

== ENCOUNTER 2021-11-08 08:52 | Inpatient (IN) | payer OTHER ==
[2021-11-08 09:13] VITALS: BMI 19.5
[2021-11-08] MEDS ORDERED: ACETAMINOPHEN 325 MG TABLET (FP) PO PRN ×2 (09:43)
[2021-11-08] MEDS ORDERED: BISMUTH SUBSALICYLATE 524 MG/30 ML PO PRN (09:43)
[2021-11-08] MEDS ORDERED: ONDANSETRON *ODT* 4 MG TABLET SL PRN (09:43)
[2021-11-08] MEDS ORDERED: IBUPROFEN 400 MG TABLET (FP) PO PRN (09:43)
[2021-11-08] MEDS ORDERED: MAG HYDROX/AL HYDROX/SIMETH 30 ML UNIT-DOSE CUP PO PRN (09:43)
[2021-11-08] MEDS ORDERED: MENTHOL/PHENOL 1 EACH UD MM PRN (09:43)
[2021-11-08] MEDS ORDERED: NICOTINE POLACRILEX 4 MG GUM BUC PRN (09:43)
[2021-11-08] MEDS ORDERED: cloNIDine HCL 0.1 MG TABLET PO PRN (09:43)
[2021-11-08] MEDS ORDERED: MAGNESIUM CITRATE 300 ML BOTTLE PO PRN (09:43)
[2021-11-08] MEDS ORDERED: MAGNESIUM HYDROX 2400MG/30ML ORAL SUSPENSION 30 ML CUP PO PRN (09:43)
[2021-11-08] MEDS: PRENATAL VITAMINS W/ FOLIC ACID TABLET (FP) PO SCH (10:49)
[2021-11-08] MEDS: BUDESONIDE/FORMETEROL FUMARATE 160/4.5 mcg INHALER IH SCH ×2 (10:50→22:08)
[2021-11-08] MEDS: TIOTROPIUM BROMIDE 2.5 MCG (SPIRIVA) RESPIMAT INHALER IH SCH (10:51)
[2021-11-08] MEDS: NICOTINE 21 MG/24 HOURS TOPICAL PATCH TD SCH (10:52)
[2021-11-08] MEDS: METHOCARBAMOL 500 MG TABLET PO PRN (10:53)
[2021-11-08] MEDS: hydrOXYzine PAMOATE 25 MG CAPSULE (FP) PO SCH ×4 (10:53→22:08)
[2021-11-08] MEDS ORDERED: methaDONE HCL 10 MG TABLET (FOR DETOX USE ONLY) ONE (11:13)
[2021-11-08] MEDS: NICOTINE 10 MG CARTRIDGE (INHALER) IH PRN (12:40)
[2021-11-08] MEDS ORDERED: MELATONIN 5 MG TABLETS PO SCH (22:00)
[2021-11-08] MEDS: THIAMINE HCL 100 MG TABLET (FP) PO SCH (22:08)
[2021-11-09] MEDS: hydrOXYzine PAMOATE 25 MG CAPSULE (FP) PO SCH ×5 (05:39→22:12)
[2021-11-09] MEDS ORDERED: methaDONE HCL 10 MG TABLET (FOR DETOX USE ONLY) PO ONE (10:00)
[2021-11-09] MEDS: METHOCARBAMOL 500 MG TABLET PO PRN ×2 (10:07→17:44)
[2021-11-09] MEDS: diazePAM 5 MG TABLET PO PRN ×3 (10:07→18:32)
[2021-11-09] MEDS: PRENATAL VITAMINS W/ FOLIC ACID TABLET (FP) PO SCH (10:07)
[2021-11-09] MEDS: NICOTINE 21 MG/24 HOURS TOPICAL PATCH TD SCH (10:08)
[2021-11-09] MEDS: TIOTROPIUM BROMIDE 2.5 MCG (SPIRIVA) RESPIMAT INHALER IH SCH (10:08)
[2021-11-09] MEDS: BUDESONIDE/FORMETEROL FUMARATE 160/4.5 mcg INHALER IH SCH ×2 (10:08→22:13)
[2021-11-09] MEDS: SUVOREXANT 10 MG TABLET PO PRN (22:11)
[2021-11-09] MEDS: THIAMINE HCL 100 MG TABLET (FP) PO SCH (22:12)
[2021-11-10] MEDS: hydrOXYzine PAMOATE 25 MG CAPSULE (FP) PO SCH ×5 (05:28→22:05)
[2021-11-10] MEDS ORDERED: methaDONE HCL 10 MG TABLET (FOR DETOX USE ONLY) ONE (09:12)
[2021-11-10] MEDS ORDERED: methaDONE HCL 10 MG TABLET (FOR DETOX USE ONLY) PO ONE (10:00)
[2021-11-10] MEDS: METHOCARBAMOL 500 MG TABLET PO PRN (10:09)
[2021-11-10] MEDS: PRENATAL VITAMINS W/ FOLIC ACID TABLET (FP) PO SCH (10:10)
[2021-11-10] MEDS: BUDESONIDE/FORMETEROL FUMARATE 160/4.5 mcg INHALER IH SCH ×2 (10:13→22:05)
[2021-11-10] MEDS: NICOTINE 21 MG/24 HOURS TOPICAL PATCH TD SCH (10:13)
[2021-11-10] MEDS: TIOTROPIUM BROMIDE 2.5 MCG (SPIRIVA) RESPIMAT INHALER IH SCH (10:13)
[2021-11-10] MEDS: diazePAM 5 MG TABLET PO PRN ×2 (11:53→19:54)
[2021-11-10] MEDS: NICOTINE 10 MG CARTRIDGE (INHALER) IH PRN ×2 (12:11→17:28)
[2021-11-10] MEDS: THIAMINE HCL 100 MG TABLET (FP) PO SCH (22:05)
[2021-11-10] MEDS: SUVOREXANT 10 MG TABLET PO PRN (22:06)
[2021-11-11] MEDS: hydrOXYzine PAMOATE 25 MG CAPSULE (FP) PO SCH ×5 (05:27→22:18)
[2021-11-11] MEDS ORDERED: methaDONE HCL 10 MG TABLET (FOR DETOX USE ONLY) PO ONE (10:00)
[2021-11-11] MEDS: NICOTINE 21 MG/24 HOURS TOPICAL PATCH TD SCH (10:07)
[2021-11-11] MEDS: PRENATAL VITAMINS W/ FOLIC ACID TABLET (FP) PO SCH (10:07)
[2021-11-11] MEDS: BUDESONIDE/FORMETEROL FUMARATE 160/4.5 mcg INHALER IH SCH ×2 (10:07→23:49)
[2021-11-11] MEDS: TIOTROPIUM BROMIDE 2.5 MCG (SPIRIVA) RESPIMAT INHALER IH SCH (10:08)
[2021-11-11] MEDS ORDERED: diazePAM 5 MG TABLET PO PRN (10:41)
[2021-11-11] MEDS: NICOTINE 10 MG CARTRIDGE (INHALER) IH PRN (12:52)
[2021-11-11] MEDS: THIAMINE HCL 100 MG TABLET (FP) PO SCH (22:18)
[2021-11-11] MEDS: SUVOREXANT 10 MG TABLET PO PRN (23:46)
[2021-11-12] MEDS: hydrOXYzine PAMOATE 25 MG CAPSULE (FP) PO SCH (06:13)
[2021-11-12 09:21] VITALS: BP 128/79; PULSE 84; TEMP 97.1
[2021-11-12] MEDS ORDERED: methaDONE HCL 10 MG TABLET (FOR DETOX USE ONLY) PO ONE (10:00)
== END 2021-11-12 09:34 | disposition home or self-care (01) | DRG 773 ==
LOC: YASAS 08:52 → Y6N 10:01
PROVIDERS: ADMIT Allergy & Immunology; ATTEND Allergy & Immunology
PROC: HZ2ZZZZ Detoxification Services for Substance Abuse Treatment (ICD-10-PCS; principal; 2021-11-08)
DX: F11.23 Opioid dependence with withdrawal (principal); F14.20 Cocaine dependence, uncomplicated; F19.24 Other psychoactive substance dependence with psychoactive substance-induced mood disorder; F19.282 Other psychoactive substance dependence with psychoactive substance-induced sleep disorder; F19.280 Other psychoactive substance dependence with psychoactive substance-induced anxiety disorder; J44.9 Chronic obstructive pulmonary disease, unspecified; M54.59 Other low back pain; G89.29 Other chronic pain; Z88.1 Allergy status to other antibiotic agents; Z88.2 Allergy status to sulfonamides; Z91.011 Allergy to milk products; Z56.0 Unemployment, unspecified
CPT/HCPCS: 87811; 93005; 93010; C9803; J0735; U0003; U0005

== ENCOUNTER 2021-11-19 09:48 | Inpatient (IN) | payer OTHER ==
[2021-11-19 11:14] VITALS: BMI 20.9
[2021-11-19] MEDS ORDERED: ONDANSETRON *ODT* 4 MG TABLET SL PRN (11:56)
[2021-11-19] MEDS ORDERED: MAG HYDROX/AL HYDROX/SIMETH 30 ML UNIT-DOSE CUP PO PRN (11:56)
[2021-11-19] MEDS ORDERED: IBUPROFEN 400 MG TABLET (FP) PO PRN (11:56)
[2021-11-19] MEDS ORDERED: MAGNESIUM HYDROX 2400MG/30ML ORAL SUSPENSION 30 ML CUP PO PRN (11:56)
[2021-11-19] MEDS ORDERED: MENTHOL/PHENOL 1 EACH UD MM PRN (11:56)
[2021-11-19] MEDS ORDERED: cloNIDine HCL 0.1 MG TABLET PO PRN (11:56)
[2021-11-19] MEDS ORDERED: MAGNESIUM CITRATE 300 ML BOTTLE PO PRN (11:56)
[2021-11-19] MEDS ORDERED: ACETAMINOPHEN 325 MG TABLET (FP) PO PRN (11:56)
[2021-11-19] MEDS ORDERED: BISMUTH SUBSALICYLATE 524 MG/30 ML PO PRN (11:56)
[2021-11-19] MEDS ORDERED: NALOXONE (NARCAN) HCL 4 MG/0.1 ML SPRAY NS PRN (11:59)
[2021-11-19] MEDS ORDERED: methaDONE HCL 10 MG TABLET (FOR DETOX USE ONLY) PO ONE (12:30)
[2021-11-19] MEDS: METHOCARBAMOL 500 MG TABLET PO PRN (13:11)
[2021-11-19] MEDS: hydrOXYzine PAMOATE 25 MG CAPSULE (FP) PO SCH ×3 (13:12→22:24)
[2021-11-19] MEDS: diazePAM 5 MG TABLET PO PRN (13:12)
[2021-11-19] MEDS: NICOTINE 10 MG CARTRIDGE (INHALER) IH PRN (18:09)
[2021-11-19] MEDS: diazePAM 5 MG TABLET PO SCH ×2 (18:09→22:24)
[2021-11-19] MEDS ORDERED: MELATONIN 5 MG TABLETS PO SCH (22:00)
[2021-11-19] MEDS: THIAMINE HCL 100 MG TABLET (FP) PO SCH (22:24)
[2021-11-20] MEDS: diazePAM 5 MG TABLET PO SCH ×4 (05:29→22:58)
[2021-11-20] MEDS: hydrOXYzine PAMOATE 25 MG CAPSULE (FP) PO SCH ×5 (05:29→22:23)
[2021-11-20] MEDS ORDERED: methaDONE HCL 10 MG TABLET (FOR DETOX USE ONLY) ONE (09:39)
[2021-11-20] MEDS: PRENATAL VITAMINS W/ FOLIC ACID TABLET (FP) PO SCH (10:12)
[2021-11-20] MEDS: METHOCARBAMOL 500 MG TABLET PO PRN (10:13)
[2021-11-20] MEDS: NICOTINE 10 MG CARTRIDGE (INHALER) IH PRN (10:15)
[2021-11-20] MEDS: ACETAMINOPHEN 325 MG TABLET (FP) PO PRN (10:18)
[2021-11-20] MEDS ORDERED: ALBUTEROL SO4 0.083% IH SOL 2.5 MG/3 ML VIAL.NEB. NEB PRN ×2 (10:32→10:37)
[2021-11-20 10:39] LABS: BLOOD UREA NITROGEN 16.1 mg/dL (7-18); CREATININE 0.8 mg/dL (0.55-1.3)
[2021-11-20 10:40] LABS: CALCIUM 9.3 mg/dL (8.5-10.1)
[2021-11-20 10:41] LABS: BILIRUBIN,TOTAL 0.4 mg/dL (0.2-1); TOT PROT 6.9 g/dl (6.4-8.2)
[2021-11-20 10:49] LABS: ALBUMIN 3.6 g/dl (3.4-5.0)
[2021-11-20 10:53] LABS: HEMATOCRIT 37.6 % (35.4-49); HEMOGLOBIN 12.5 GM/dL (11.7-16.9); MCH 28.7 pg (25.7-33.7); MCHC 33.3 g/dl (32.0-35.9); MEAN CELL VOLUME 86.1 fl (80-96); MEAN PLT VOLUME 8.1 fl (7.5-11.1); PLATELET COUNT 193 10^3/uL (134-434); RBC 4.37 M/mm3 (4.00-5.60); RDW 14.3 % (11.9-15.9); WHITE BLOOD COUNT 8.5 K/mm3 (4.0-10.0)
[2021-11-20] MEDS: BUDESONIDE/FORMETEROL FUMARATE 160/4.5 mcg INHALER IH SCH ×2 (11:23→22:23)
[2021-11-20] MEDS: NICOTINE 21 MG/24 HOURS TOPICAL PATCH TD SCH (11:23)
[2021-11-20] MEDS: diazePAM 5 MG TABLET PO PRN (12:26)
[2021-11-20] MEDS: THIAMINE HCL 100 MG TABLET (FP) PO SCH (22:23)
[2021-11-20] MEDS: SUVOREXANT 10 MG TABLET PO PRN (22:49)
[2021-11-21] MEDS: hydrOXYzine PAMOATE 25 MG CAPSULE (FP) PO SCH ×5 (05:28→22:21)
[2021-11-21] MEDS: diazePAM 5 MG TABLET PO SCH ×3 (05:28→22:21)
[2021-11-21] MEDS: NICOTINE 10 MG CARTRIDGE (INHALER) IH PRN ×3 (06:49→22:26)
[2021-11-21] MEDS: diazePAM 5 MG TABLET PO PRN ×2 (08:06→12:43)
[2021-11-21] MEDS ORDERED: methaDONE HCL 10 MG TABLET (FOR DETOX USE ONLY) PO ONE (10:00)
[2021-11-21] MEDS: METHOCARBAMOL 500 MG TABLET PO PRN ×2 (10:07→22:21)
[2021-11-21] MEDS: PRENATAL VITAMINS W/ FOLIC ACID TABLET (FP) PO SCH (10:07)
[2021-11-21] MEDS: BUDESONIDE/FORMETEROL FUMARATE 160/4.5 mcg INHALER IH SCH ×2 (10:08→22:21)
[2021-11-21] MEDS: NICOTINE 21 MG/24 HOURS TOPICAL PATCH TD SCH (10:10)
[2021-11-21] MEDS: ACETAMINOPHEN 325 MG TABLET (FP) PO PRN ×2 (14:34→22:22)
[2021-11-21] MEDS: THIAMINE HCL 100 MG TABLET (FP) PO SCH (22:21)
[2021-11-21] MEDS: SUVOREXANT 10 MG TABLET PO PRN (22:24)
[2021-11-22] MEDS: hydrOXYzine PAMOATE 25 MG CAPSULE (FP) PO SCH ×5 (05:53→22:23)
[2021-11-22] MEDS: diazePAM 5 MG TABLET PO SCH ×2 (05:53→17:01)
[2021-11-22] MEDS ORDERED: methaDONE HCL 10 MG TABLET (FOR DETOX USE ONLY) ONE (09:10)
[2021-11-22] MEDS: BUDESONIDE/FORMETEROL FUMARATE 160/4.5 mcg INHALER IH SCH ×2 (09:37→22:21)
[2021-11-22] MEDS: PRENATAL VITAMINS W/ FOLIC ACID TABLET (FP) PO SCH (09:37)
[2021-11-22] MEDS: diazePAM 5 MG TABLET PO PRN (09:38)
[2021-11-22] MEDS: METHOCARBAMOL 500 MG TABLET PO PRN ×2 (09:38→22:23)
[2021-11-22] MEDS: ACETAMINOPHEN 325 MG TABLET (FP) PO PRN (09:41)
[2021-11-22] MEDS: NICOTINE 21 MG/24 HOURS TOPICAL PATCH TD SCH (09:42)
[2021-11-22] MEDS: NICOTINE 10 MG CARTRIDGE (INHALER) IH PRN ×3 (13:08→22:23)
[2021-11-22] MEDS: SUVOREXANT 10 MG TABLET PO PRN (22:21)
[2021-11-22] MEDS: THIAMINE HCL 100 MG TABLET (FP) PO SCH (22:23)
[2021-11-23] MEDS: ALBUTEROL SO4 HFA INHALER IH PRN (05:40)
[2021-11-23] MEDS: ACETAMINOPHEN 325 MG TABLET (FP) PO PRN ×3 (05:41→18:56)
[2021-11-23] MEDS: hydrOXYzine PAMOATE 25 MG CAPSULE (FP) PO SCH ×5 (05:41→21:34)
[2021-11-23] MEDS ORDERED: diazePAM 5 MG TABLET PO ONE (06:00)
[2021-11-23] MEDS: BUDESONIDE/FORMETEROL FUMARATE 160/4.5 mcg INHALER IH SCH ×2 (09:40→21:34)
[2021-11-23] MEDS: METHOCARBAMOL 500 MG TABLET PO PRN (09:41)
[2021-11-23] MEDS: NICOTINE 10 MG CARTRIDGE (INHALER) IH PRN ×3 (09:41→18:58)
[2021-11-23] MEDS: NICOTINE 21 MG/24 HOURS TOPICAL PATCH TD SCH (09:41)
[2021-11-23] MEDS: PRENATAL VITAMINS W/ FOLIC ACID TABLET (FP) PO SCH (09:42)
[2021-11-23] MEDS ORDERED: methaDONE HCL 10 MG TABLET (FOR DETOX USE ONLY) PO ONE (10:00)
[2021-11-23] MEDS ORDERED: diazePAM 5 MG TABLET PO PRN (12:54)
[2021-11-23] MEDS: SUVOREXANT 10 MG TABLET PO PRN (21:33)
[2021-11-23] MEDS: THIAMINE HCL 100 MG TABLET (FP) PO SCH (21:34)
[2021-11-24] MEDS: hydrOXYzine PAMOATE 25 MG CAPSULE (FP) PO SCH (05:53)
[2021-11-24] MEDS: ALBUTEROL SO4 HFA INHALER IH PRN (05:53)
[2021-11-24] MEDS: ACETAMINOPHEN 325 MG TABLET (FP) PO PRN (07:17)
[2021-11-24] MEDS: NICOTINE 10 MG CARTRIDGE (INHALER) IH PRN (07:48)
[2021-11-24 09:09] VITALS: BP 102/69; PULSE 83; TEMP 97.5
== END 2021-11-24 09:10 | disposition home or self-care (01) | DRG 773 ==
LOC: YASAS 09:48 → Y6N 12:33
PROVIDERS: ADMIT Allergy & Immunology; ATTEND Allergy & Immunology
PROC: HZ2ZZZZ Detoxification Services for Substance Abuse Treatment (ICD-10-PCS; principal; 2021-11-19)
DX: F11.23 Opioid dependence with withdrawal (principal); F13.230 Sedative, hypnotic or anxiolytic dependence with withdrawal, uncomplicated; F14.20 Cocaine dependence, uncomplicated; F12.10 Cannabis abuse, uncomplicated; F17.210 Nicotine dependence, cigarettes, uncomplicated; F19.280 Other psychoactive substance dependence with psychoactive substance-induced anxiety disorder; F19.282 Other psychoactive substance dependence with psychoactive substance-induced sleep disorder; F19.24 Other psychoactive substance dependence with psychoactive substance-induced mood disorder; F43.10 Post-traumatic stress disorder, unspecified; Z91.410 Personal history of adult physical and sexual abuse; Z88.2 Allergy status to sulfonamides; Z91.011 Allergy to milk products
CPT/HCPCS: 36415; 80053; 85027; 86780; C9803; U0003; U0005

== ENCOUNTER 2021-12-03 11:41 | Inpatient (IN) | payer OTHER ==
[2021-12-03 13:52] VITALS: BMI 21.1
[2021-12-03] MEDS ORDERED: MENTHOL/PHENOL 1 EACH UD MM PRN (14:03)
[2021-12-03] MEDS ORDERED: BISMUTH SUBSALICYLATE 262 MG/15 ML BTL PO PRN (14:03)
[2021-12-03] MEDS ORDERED: IBUPROFEN 400 MG TABLET (FP) PO PRN (14:03)
[2021-12-03] MEDS ORDERED: cloNIDine HCL 0.1 MG TABLET PO PRN (14:03)
[2021-12-03] MEDS ORDERED: MAGNESIUM HYDROX 2400MG/30ML ORAL SUSPENSION 30 ML CUP PO PRN (14:03)
[2021-12-03] MEDS ORDERED: MAG HYDROX/AL HYDROX/SIMETH 30 ML UNIT-DOSE CUP PO PRN (14:03)
[2021-12-03] MEDS ORDERED: ACETAMINOPHEN 325 MG TABLET (FP) PO PRN ×2 (14:03)
[2021-12-03] MEDS ORDERED: methaDONE HCL 10 MG TABLET (FOR DETOX USE ONLY) PO ONE (14:03)
[2021-12-03] MEDS ORDERED: MAGNESIUM CITRATE 300 ML BOTTLE PO PRN (14:03)
[2021-12-03] MEDS ORDERED: ONDANSETRON *ODT* 4 MG TABLET SL PRN (14:03)
[2021-12-03] MEDS ORDERED: diazePAM 5 MG TABLET PO SCH (14:15)
[2021-12-03] MEDS ORDERED: diazePAM 5 MG TABLET ONE (15:15)
[2021-12-03] MEDS: PRENATAL VITAMINS W/ FOLIC ACID TABLET (FP) PO SCH (15:29)
[2021-12-03] MEDS: diazePAM 5 MG TABLET PO PRN (15:36)
[2021-12-03] MEDS: hydrOXYzine PAMOATE 25 MG CAPSULE (FP) PO SCH ×2 (17:14→22:53)
[2021-12-03] MEDS ORDERED: MELATONIN 5 MG TABLETS PO SCH (22:00)
[2021-12-03] MEDS: THIAMINE HCL 100 MG TABLET (FP) PO SCH (22:53)
[2021-12-03] MEDS: METHOCARBAMOL 500 MG TABLET PO PRN (22:53)
[2021-12-04] MEDS: diazePAM 5 MG TABLET PO PRN ×3 (07:08→23:30)
[2021-12-04] MEDS: hydrOXYzine PAMOATE 25 MG CAPSULE (FP) PO SCH ×5 (07:08→22:01)
[2021-12-04] MEDS ORDERED: methaDONE HCL 10 MG TABLET (FOR DETOX USE ONLY) ONE (09:17)
[2021-12-04] MEDS: PRENATAL VITAMINS W/ FOLIC ACID TABLET (FP) PO SCH (11:05)
[2021-12-04 11:51] LABS: CALCIUM 9.2 mg/dL (8.5-10.1)
[2021-12-04 11:52] LABS: ALBUMIN 3.7 g/dl (3.4-5.0); BLOOD UREA NITROGEN 21.5 mg/dL (7-18)
[2021-12-04 11:55] LABS: CREATININE 0.8 mg/dL (0.55-1.3)
[2021-12-04 11:57] LABS: BILIRUBIN,TOTAL 0.2 mg/dL (0.2-1); HEMATOCRIT 37.9 % (35.4-49); HEMOGLOBIN 12.7 GM/dL (11.7-16.9); MCH 28.5 pg (25.7-33.7); MCHC 33.5 g/dl (32.0-35.9); MEAN CELL VOLUME 84.9 fl (80-96); MEAN PLT VOLUME 8.2 fl (7.5-11.1); PLATELET COUNT 273 10^3/uL (134-434); RBC 4.47 M/mm3 (4.00-5.60); RDW 14.7 % (11.9-15.9); TOT PROT 6.8 g/dl (6.4-8.2); WHITE BLOOD COUNT 5.5 K/mm3 (4.0-10.0)
[2021-12-04] MEDS ORDERED: ALBUTEROL SO4 HFA INHALER IH PRN (14:52)
[2021-12-04] MEDS: NICOTINE 10 MG CARTRIDGE (INHALER) IH PRN ×2 (17:45→22:01)
[2021-12-04] MEDS ORDERED: SUVOREXANT 10 MG TABLET PO PRN (22:00)
[2021-12-04] MEDS: BUDESONIDE/FORMETEROL FUMARATE 80/4.5 mcg INHALER IH SCH (22:01)
[2021-12-04] MEDS: THIAMINE HCL 100 MG TABLET (FP) PO SCH (22:01)
[2021-12-04] MEDS: METHOCARBAMOL 500 MG TABLET PO PRN (22:02)
[2021-12-05] MEDS: METHOCARBAMOL 500 MG TABLET PO PRN (06:56)
[2021-12-05] MEDS: hydrOXYzine PAMOATE 25 MG CAPSULE (FP) PO SCH ×4 (06:57→14:32)
[2021-12-05] MEDS: PRENATAL VITAMINS W/ FOLIC ACID TABLET (FP) PO SCH (09:37)
[2021-12-05] MEDS: BUDESONIDE/FORMETEROL FUMARATE 80/4.5 mcg INHALER IH SCH (09:38)
[2021-12-05] MEDS ORDERED: methaDONE HCL 10 MG TABLET (FOR DETOX USE ONLY) PO ONE (10:00)
[2021-12-05] MEDS ORDERED: AZITHROMYCIN 250 MG TABLET PO ONE (10:30)
[2021-12-05 13:15] VITALS: BP 107/65; PULSE 97; TEMP 98.6
[2021-12-05] MEDS: NICOTINE 10 MG CARTRIDGE (INHALER) IH PRN (15:52)
[2021-12-06] MEDS ORDERED: AZITHROMYCIN 250 MG TABLET PO SCH (10:00)
[2021-12-07] MEDS ORDERED: methaDONE HCL 10 MG TABLET (FOR DETOX USE ONLY) PO ONE (10:00)
== END 2021-12-05 18:48 | disposition home or self-care (01) | DRG 773 ==
LOC: YASAS 11:41 → Y3N 16:52
PROVIDERS: ADMIT Allergy & Immunology; ATTEND Allergy & Immunology
PROC: HZ2ZZZZ Detoxification Services for Substance Abuse Treatment (ICD-10-PCS; principal; 2021-12-03)
DX: F11.23 Opioid dependence with withdrawal (principal); F13.20 Sedative, hypnotic or anxiolytic dependence, uncomplicated; F12.20 Cannabis dependence, uncomplicated; F17.210 Nicotine dependence, cigarettes, uncomplicated; F25.9 Schizoaffective disorder, unspecified; F41.8 Other specified anxiety disorders; F32.A Depression, unspecified; U07.1 COVID-19; G47.00 Insomnia, unspecified; J44.9 Chronic obstructive pulmonary disease, unspecified; M54.50 Low back pain, unspecified; G89.29 Other chronic pain; Z91.14 Patient's other noncompliance with medication regimen; Z88.2 Allergy status to sulfonamides; Z91.011 Allergy to milk products
CPT/HCPCS: 36415; 80053; 85027; 86780; C9803; U0003; U0005

== ENCOUNTER 2021-12-25 13:28 | Inpatient (IN) | payer OTHER ==
[2021-12-25] MEDS ORDERED: cloNIDine HCL 0.1 MG TABLET PO PRN (14:02)
[2021-12-25] MEDS ORDERED: MAGNESIUM CITRATE 300 ML BOTTLE PO PRN (14:02)
[2021-12-25] MEDS ORDERED: ONDANSETRON *ODT* 4 MG TABLET SL PRN (14:02)
[2021-12-25] MEDS ORDERED: NICOTINE 10 MG CARTRIDGE (INHALER) IH PRN (14:02)
[2021-12-25] MEDS ORDERED: methaDONE HCL 10 MG TABLET (FOR DETOX USE ONLY) PO ONE ×2 (14:02→18:30)
[2021-12-25] MEDS ORDERED: IBUPROFEN 400 MG TABLET (FP) PO PRN (14:02)
[2021-12-25] MEDS ORDERED: MENTHOL/PHENOL 1 EACH UD MM PRN (14:02)
[2021-12-25] MEDS ORDERED: ACETAMINOPHEN 325 MG TABLET (FP) PO PRN ×2 (14:02)
[2021-12-25] MEDS ORDERED: BISMUTH SUBSALICYLATE 262 MG/15 ML BTL PO PRN (14:02)
[2021-12-25] MEDS ORDERED: MAGNESIUM HYDROX 2400MG/30ML ORAL SUSPENSION 30 ML CUP PO PRN (14:02)
[2021-12-25] MEDS ORDERED: MAG HYDROX/AL HYDROX/SIMETH 30 ML UNIT-DOSE CUP PO PRN (14:02)
[2021-12-25] MEDS ORDERED: METHOCARBAMOL 500 MG TABLET PO PRN (14:02)
[2021-12-25 14:22] VITALS: BMI 21.2
[2021-12-25 16:51] LABS: HEMATOCRIT 34.6 % (35.4-49); HEMOGLOBIN 11.8 GM/dL (11.7-16.9); MCH 28.7 pg (25.7-33.7); MEAN CELL VOLUME 84.5 fl (80-96); MEAN PLT VOLUME 8.1 fl (7.5-11.1); PLATELET COUNT 260 10^3/uL (134-434); RBC 4.09 M/mm3 (4.00-5.60); RDW 13.6 % (11.9-15.9); WHITE BLOOD COUNT 8.4 K/mm3 (4.0-10.0)
[2021-12-25 16:55] LABS: ALBUMIN 3.4 g/dl (3.4-5.0); BLOOD UREA NITROGEN 15.3 mg/dL (7-18); CALCIUM 9.2 mg/dL (8.5-10.1)
[2021-12-25 16:58] LABS: CREATININE 0.9 mg/dL (0.55-1.3)
[2021-12-25 17:00] LABS: BILIRUBIN,TOTAL 0.3 mg/dL (0.2-1); TOT PROT 6.8 g/dl (6.4-8.2)
[2021-12-25] MEDS: hydrOXYzine PAMOATE 25 MG CAPSULE (FP) PO SCH ×2 (18:09→22:03)
[2021-12-25] MEDS: NICOTINE 14 MG/24 HOURS TOPICAL PATCH TD SCH (18:16)
[2021-12-25] MEDS: PRENATAL VITAMINS W/ FOLIC ACID TABLET (FP) PO SCH (18:16)
[2021-12-25] MEDS ORDERED: MELATONIN 5 MG TABLETS PO SCH (22:00)
[2021-12-25] MEDS ORDERED: THIAMINE HCL 100 MG TABLET (FP) PO SCH (22:00)
[2021-12-25] MEDS ORDERED: OLANZapine 2.5 MG TABLET PO SCH (22:00)
[2021-12-25] MEDS ORDERED: SUVOREXANT 10 MG TABLET PO PRN (22:00)
[2021-12-26] MEDS: hydrOXYzine PAMOATE 25 MG CAPSULE (FP) PO SCH ×3 (05:08→15:03)
[2021-12-26] MEDS ORDERED: methaDONE HCL 10 MG TABLET (FOR DETOX USE ONLY) ONE (09:34)
[2021-12-26] MEDS ORDERED: diazePAM 5 MG TABLET PO PRN (09:53)
[2021-12-26] MEDS: PRENATAL VITAMINS W/ FOLIC ACID TABLET (FP) PO SCH (10:14)
[2021-12-26] MEDS: NICOTINE 14 MG/24 HOURS TOPICAL PATCH TD SCH (10:19)
[2021-12-26 16:56] VITALS: BP 117/71; PULSE 85; TEMP 97.5
[2021-12-27] MEDS ORDERED: methaDONE HCL 10 MG TABLET (FOR DETOX USE ONLY) PO ONE (10:00)
[2021-12-29] MEDS ORDERED: methaDONE HCL 10 MG TABLET (FOR DETOX USE ONLY) PO ONE (10:00)
== END 2021-12-26 17:17 | disposition left against medical advice (07) | DRG 770 ==
LOC: YASAS 13:28 → Y6N 15:31
PROVIDERS: ADMIT Allergy & Immunology; ATTEND Allergy & Immunology
PROC: HZ2ZZZZ Detoxification Services for Substance Abuse Treatment (ICD-10-PCS; principal; 2021-12-25)
DX: F11.23 Opioid dependence with withdrawal (principal); F13.20 Sedative, hypnotic or anxiolytic dependence, uncomplicated; F14.20 Cocaine dependence, uncomplicated; F12.20 Cannabis dependence, uncomplicated; F17.210 Nicotine dependence, cigarettes, uncomplicated; F19.282 Other psychoactive substance dependence with psychoactive substance-induced sleep disorder; F19.24 Other psychoactive substance dependence with psychoactive substance-induced mood disorder; M17.0 Bilateral primary osteoarthritis of knee; M54.50 Low back pain, unspecified; G89.29 Other chronic pain; Z62.810 Personal history of physical and sexual abuse in childhood; Z88.2 Allergy status to sulfonamides; Z91.011 Allergy to milk products
CPT/HCPCS: 36415; 80053; 85027; 86780; C9803; U0003; U0005

== ENCOUNTER 2022-01-05 10:16 | Inpatient (IN) | payer OTHER ==
[2022-01-05 10:36] VITALS: BMI 20.3
[2022-01-05] MEDS ORDERED: ACETAMINOPHEN 325 MG TABLET (FP) PO PRN ×2 (11:01)
[2022-01-05] MEDS ORDERED: BUPRENORPHINE HCL 150 MCG, BUPRENORPHINE HCL 75 MCG BC ONE (11:01)
[2022-01-05] MEDS ORDERED: MAG HYDROX/AL HYDROX/SIMETH 30 ML UNIT-DOSE CUP PO PRN (11:01)
[2022-01-05] MEDS ORDERED: BISMUTH SUBSALICYLATE 524 MG/30 ML PO PRN (11:01)
[2022-01-05] MEDS ORDERED: MAGNESIUM HYDROX 2400MG/30ML ORAL SUSPENSION 30 ML CUP PO PRN (11:01)
[2022-01-05] MEDS ORDERED: METHOCARBAMOL 500 MG TABLET PO PRN (11:01)
[2022-01-05] MEDS ORDERED: MAGNESIUM CITRATE 300 ML BOTTLE PO PRN (11:01)
[2022-01-05] MEDS ORDERED: IBUPROFEN 400 MG TABLET (FP) PO PRN (11:01)
[2022-01-05] MEDS ORDERED: MENTHOL/PHENOL 1 EACH UD MM PRN (11:01)
[2022-01-05] MEDS ORDERED: LOPERAMIDE HCL 2 MG CAPSULE PO PRN (11:01)
[2022-01-05] MEDS ORDERED: cloNIDine HCL 0.1 MG TABLET PO ONE (11:01)
[2022-01-05] MEDS ORDERED: ONDANSETRON *ODT* 4 MG TABLET SL PRN (11:01)
[2022-01-05] MEDS ORDERED: diazePAM 5 MG TABLET ONE (12:29)
[2022-01-05] MEDS ORDERED: cloNIDine HCL 0.1 MG TABLET ONE (12:30)
[2022-01-05] MEDS ORDERED: BUPRENORPHINE HCL 150 MCG FILM BC ONE (12:30)
[2022-01-05] MEDS ORDERED: BUPRENORPHINE HCL 75 MCG FILM BC ONE (12:30)
[2022-01-05] MEDS: NICOTINE 14 MG/24 HOURS TOPICAL PATCH TD SCH (12:36)
[2022-01-05] MEDS: PRENATAL VITAMINS W/ FOLIC ACID TABLET (FP) PO SCH (12:36)
[2022-01-05] MEDS: diazePAM 5 MG TABLET PO PRN ×2 (12:36→18:37)
[2022-01-05] MEDS ORDERED: PATIENT'S OWN MEDICATION (NON-FORMULARY) (Clonazepam [Klonopin] 2 MG Tablet) PO SCH (14:00)
[2022-01-05] MEDS: hydrOXYzine PAMOATE 25 MG CAPSULE (FP) PO SCH ×3 (14:09→21:23)
[2022-01-05 14:50] LABS: CALCIUM 9.4 mg/dL (8.5-10.1)
[2022-01-05 14:51] LABS: ALBUMIN 3.8 g/dl (3.4-5.0); BLOOD UREA NITROGEN 13.6 mg/dL (7-18)
[2022-01-05 14:54] LABS: CREATININE 0.9 mg/dL (0.55-1.3); HEMATOCRIT 41.7 % (35.4-49); HEMOGLOBIN 14.1 GM/dL (11.7-16.9); MCH 28.5 pg (25.7-33.7); MCHC 33.8 g/dl (32.0-35.9); MEAN CELL VOLUME 84.4 fl (80-96); MEAN PLT VOLUME 8.1 fl (7.5-11.1); PLATELET COUNT 292 10^3/uL (134-434); RBC 4.93 M/mm3 (4.00-5.60); RDW 14.1 % (11.9-15.9); WHITE BLOOD COUNT 8.4 K/mm3 (4.0-10.0)
[2022-01-05 14:55] LABS: TOT PROT 7.3 g/dl (6.4-8.2)
[2022-01-05 14:56] LABS: BILIRUBIN,TOTAL 0.6 mg/dL (0.2-1)
[2022-01-05] MEDS ORDERED: cloNIDine HCL 0.1 MG TABLET PO PRN (15:01)
[2022-01-05] MEDS: NICOTINE 10 MG CARTRIDGE (INHALER) IH PRN (17:39)
[2022-01-05] MEDS: MELATONIN 5 MG TABLETS PO SCH (21:23)
[2022-01-05] MEDS: THIAMINE HCL 100 MG TABLET (FP) PO SCH (21:23)
[2022-01-06] MEDS ORDERED: BUPRENORPHINE HCL 150 MCG FILM BC ONE ×2 (04:41→17:43)
[2022-01-06] MEDS ORDERED: BUPRENORPHINE HCL 75 MCG FILM BC ONE ×2 (04:41→17:43)
[2022-01-06] MEDS: hydrOXYzine PAMOATE 25 MG CAPSULE (FP) PO SCH ×5 (05:37→22:38)
[2022-01-06] MEDS: BUPRENORPHINE HCL 150 MCG, BUPRENORPHINE HCL 75 MCG BC SCH ×2 (05:38→17:45)
[2022-01-06] MEDS: diazePAM 5 MG TABLET PO PRN ×4 (07:28→22:38)
[2022-01-06] MEDS: PRENATAL VITAMINS W/ FOLIC ACID TABLET (FP) PO SCH (10:28)
[2022-01-06] MEDS: NICOTINE 14 MG/24 HOURS TOPICAL PATCH TD SCH (10:29)
[2022-01-06] MEDS ORDERED: BUDESONIDE/FORMETEROL FUMARATE 80/4.5 mcg INHALER IH ONE (19:53)
[2022-01-06] MEDS: ALBUTEROL SO4 HFA INHALER IH PRN (20:06)
[2022-01-06] MEDS: THIAMINE HCL 100 MG TABLET (FP) PO SCH (22:38)
[2022-01-06] MEDS: MELATONIN 5 MG TABLETS PO SCH (22:38)
[2022-01-06] MEDS: TIOTROPIUM BROMIDE 2.5 MCG (SPIRIVA) RESPIMAT INHALER IH SCH (23:43)
[2022-01-07] MEDS: diazePAM 5 MG TABLET PO PRN ×4 (02:55→22:08)
[2022-01-07 06:06] LABS: SARS-CoV-2 NAA Not Detected (Not Detected)
[2022-01-07] MEDS: BUPRENORPHINE HCL 450 MCG FILM BC SCH ×2 (06:11→17:47)
[2022-01-07] MEDS: hydrOXYzine PAMOATE 25 MG CAPSULE (FP) PO SCH ×4 (06:11→22:08)
[2022-01-07] MEDS: ALBUTEROL SO4 HFA INHALER IH PRN ×2 (06:18→22:11)
[2022-01-07] MEDS: TIOTROPIUM BROMIDE 2.5 MCG (SPIRIVA) RESPIMAT INHALER IH SCH (10:15)
[2022-01-07] MEDS: NICOTINE 14 MG/24 HOURS TOPICAL PATCH TD SCH (10:17)
[2022-01-07] MEDS: PRENATAL VITAMINS W/ FOLIC ACID TABLET (FP) PO SCH (10:17)
[2022-01-07] MEDS ORDERED: SUVOREXANT 10 MG TABLET PO PRN (22:00)
[2022-01-07] MEDS: THIAMINE HCL 100 MG TABLET (FP) PO SCH (22:08)
[2022-01-07] MEDS: MELATONIN 5 MG TABLETS PO SCH (22:09)
[2022-01-08] MEDS: BUPRENORPHINE/NALOXONE 4 MG/1 MG FILM PACKET SL SCH ×2 (05:34→18:09)
[2022-01-08] MEDS: hydrOXYzine PAMOATE 25 MG CAPSULE (FP) PO SCH ×5 (05:35→22:07)
[2022-01-08] MEDS: diazePAM 5 MG TABLET PO PRN ×2 (05:36→10:19)
[2022-01-08] MEDS: TIOTROPIUM BROMIDE 2.5 MCG (SPIRIVA) RESPIMAT INHALER IH SCH (10:18)
[2022-01-08] MEDS: PRENATAL VITAMINS W/ FOLIC ACID TABLET (FP) PO SCH (10:20)
[2022-01-08] MEDS: NICOTINE 14 MG/24 HOURS TOPICAL PATCH TD SCH (10:20)
[2022-01-08] MEDS: ALBUTEROL SO4 HFA INHALER IH PRN (19:03)
[2022-01-08] MEDS: NICOTINE 10 MG CARTRIDGE (INHALER) IH PRN (19:03)
[2022-01-08] MEDS ORDERED: SUVOREXANT 15 MG TABLET PO PRN (22:00)
[2022-01-08] MEDS: MELATONIN 5 MG TABLETS PO SCH (22:06)
[2022-01-08] MEDS: THIAMINE HCL 100 MG TABLET (FP) PO SCH (22:07)
[2022-01-09] MEDS: hydrOXYzine PAMOATE 25 MG CAPSULE (FP) PO SCH ×2 (05:37→09:48)
[2022-01-09] MEDS: ALBUTEROL SO4 HFA INHALER IH PRN (05:37)
[2022-01-09] MEDS ORDERED: BUPRENORPHINE/NALOXONE 8 MG/2 MG FILM PACKET SL ONE (06:00)
[2022-01-09 07:01] VITALS: PULSE 102
[2022-01-09 08:55] VITALS: BP 92/68; TEMP 98.4
[2022-01-09] MEDS: PRENATAL VITAMINS W/ FOLIC ACID TABLET (FP) PO SCH (09:48)
[2022-01-09] MEDS: TIOTROPIUM BROMIDE 2.5 MCG (SPIRIVA) RESPIMAT INHALER IH SCH (09:48)
[2022-01-09] MEDS: NICOTINE 14 MG/24 HOURS TOPICAL PATCH TD SCH (09:49)
== END 2022-01-09 11:02 | disposition home or self-care (01) | DRG 773 ==
LOC: YASAS 10:16 → Y3N 12:33
PROVIDERS: ADMIT Allergy & Immunology; ATTEND Allergy & Immunology
PROC: HZ2ZZZZ Detoxification Services for Substance Abuse Treatment (ICD-10-PCS; principal; 2022-01-05)
DX: F11.23 Opioid dependence with withdrawal (principal); F13.20 Sedative, hypnotic or anxiolytic dependence, uncomplicated; F12.20 Cannabis dependence, uncomplicated; F17.210 Nicotine dependence, cigarettes, uncomplicated; F20.9 Schizophrenia, unspecified; F19.24 Other psychoactive substance dependence with psychoactive substance-induced mood disorder; F41.8 Other specified anxiety disorders; F32.9 Major depressive disorder, single episode, unspecified; J43.8 Other emphysema; M17.0 Bilateral primary osteoarthritis of knee; Z88.2 Allergy status to sulfonamides; Z91.011 Allergy to milk products; Z91.14 Patient's other noncompliance with medication regimen
CPT/HCPCS: 36415; 80053; 85027; 86780; C9803; J0735; U0003; U0005

== ENCOUNTER 2022-02-17 18:05 | Emergency (ER) | payer OTHER ==
[2022-02-17] MEDS ORDERED: IBUPROFEN 600 MG TABLET (FP) PO ONE (18:40)
[2022-02-17] MEDS ORDERED: LIDOCAINE 5% TOPICAL PATCH TP ONE (18:40)
[2022-02-17] MEDS ORDERED: LIDOCAINE 5% TOPICAL PATCH ONE (18:41)
[2022-02-17] MEDS ORDERED: IBUPROFEN 400 MG TABLET (FP) PO ONE ×2 (18:42)
[2022-02-17 18:51] VITALS: BP 113/78; PULSE 83; TEMP 99; BMI 20.3
[2022-02-17] MEDS ORDERED: LIDOCAINE PATCH REMOVAL MC SCH (22:00)
== END 2022-02-17 19:10 | disposition home or self-care (01) ==
LOC: FER 18:05
DX: M54.2 Cervicalgia (principal); M54.50 Low back pain, unspecified; V49.40XA Driver injured in collision with unspecified motor vehicles in traffic accident, initial encounter
CPT/HCPCS: 99283-25

== ENCOUNTER 2022-07-09 19:30 | Emergency (ER) | payer OTHER ==
[2022-07-09 19:54] VITALS: BP 100/70; PULSE 100; RESP 20; TEMP 98.2; BMI 21.9
== END 2022-07-09 21:26 | disposition home or self-care (01) ==
LOC: FER 19:30
DX: S09.90XA Unspecified injury of head, initial encounter (principal); W22.8XXA Striking against or struck by other objects, initial encounter
CPT/HCPCS: 70450-TC; 99284-25

== ENCOUNTER 2022-07-18 09:49 | Emergency (ER) | payer OTHER ==
[2022-07-18 09:59] VITALS: BP 101/70; PULSE 68; RESP 18; TEMP 98.5; BMI 21.9
[2022-07-18 10:30] LABS: HEMATOCRIT 39.9 % (35.4-49); HEMOGLOBIN 13.9 G/dL (11.7-16.9); MCH 30.8 pg (25.7-33.7); MCHC 34.8 g/dl (32.0-35.9); MEAN CELL VOLUME 88.7 fl (80-96); MEAN PLT VOLUME 7.8 fl (7.5-11.1); PLATELET COUNT 175.5 10^3/uL (134-434); RDW 14.1 % (11.9-15.9); WHITE BLOOD COUNT 5.5 10^3/uL (4.0-10.8)
[2022-07-18 10:44] LABS: ALBUMIN 3.7 g/dl (3.4-5.0); BILIRUBIN,TOTAL 0.7 mg/dl (0.2-1); CALCIUM 9.2 mg/dl (8.5-10); CREATININE 0.8 mg/dl (0.55-1.3); TOT PROT 6.5 g/dl (6.4-8.2)
[2022-07-18 11:52] LABS: PLATELET ESTIMATE ADEQUATE
== END 2022-07-18 11:00 | disposition home or self-care (01) ==
LOC: FER 09:49
DX: K62.5 Hemorrhage of anus and rectum (principal)
CPT/HCPCS: 36415; 80053; 82272; 85027; 99283-25

== ENCOUNTER 2022-09-17 13:32 | Emergency (ER) | payer OTHER ==
[2022-09-17 13:48] VITALS: BP 116/60; RESP 18; TEMP 98; BMI 18.0
[2022-09-17 17:25] LABS: BASO % 0.7 % (0-2.0); EOS % 1.5 % (0-4.5); HEMATOCRIT 40.2 % (35.4-49); HEMOGLOBIN 12.8 GM/dL (11.7-16.9); LYMPH % 29.3 % (8-40); MCHC 31.8 g/dl (32.0-35.9); MEAN PLT VOLUME 8.7 fl (7.5-11.1); MONO % 8.7 % (3.8-10.2); NEUT % 59.8 % (42.8-82.8); PLATELET COUNT 212 10^3/uL (134-434); RBC 4.56 M/mm3 (4.00-5.60); RDW 14.3 % (11.9-15.9); WHITE BLOOD COUNT 6.4 K/mm3 (4.0-10.0)
[2022-09-17 17:39] LABS: CHLORIDE 106 mmol/L (98-107); SODIUM 141 mmol/L (136-145)
[2022-09-17 17:42] LABS: ALBUMIN 3.7 g/dl (3.4-5.0); ANION GAP 4 MMOL/L (8-16); BLOOD UREA NITROGEN 13.6 mg/dL (7-18); CO2 31 mmol/L (21-32); GLUCOSE,RANDOM 73 mg/dL (74-106)
[2022-09-17 17:44] LABS: SGPT/ALT 32 U/L (13-61)
[2022-09-17 17:45] LABS: CREATININE 0.8 mg/dL (0.55-1.3); SGOT/AST 29 U/L (15-37)
[2022-09-17 17:46] LABS: BILIRUBIN,TOTAL 0.4 mg/dL (0.2-1)
[2022-09-17 17:48] LABS: ALK PHOS 79 U/L (45-117)
[2022-09-17 20:19] VITALS: PULSE 86
== END 2022-09-17 21:45 | disposition home or self-care (01) ==
LOC: JER 13:32
DX: R07.9 Chest pain, unspecified (principal); J44.9 Chronic obstructive pulmonary disease, unspecified
CPT/HCPCS: 0241U-QW; 36415; 71275-TC; 80053; 84484; 85025; 93005; 93010; 99285-25; Q9967

== ENCOUNTER 2023-08-31 11:09 | Emergency (ER) | payer OTHER ==
[2023-08-31 11:21] VITALS: BP 108/68; PULSE 85; RESP 20; TEMP 99.3; BMI 20.3
[2023-08-31] MEDS ORDERED: methylPREDNISolone NA SUCC 125 MG/2 ML VIAL IVPB ONE (11:40)
[2023-08-31] MEDS ORDERED: ALBUTEROL SO4 2.5/IPRATROPIUM 0.5 INH SOL 3 ML VIAL.NEB. NEB ONE ×2 (11:40→11:42)
[2023-08-31] MEDS ORDERED: methylPREDNISolone NA SUCC 125 MG/2 ML VIAL ONE (11:42)
[2023-08-31 12:21] LABS: HEMATOCRIT 43.9 % (35.4-49); MCH 28.1 pg (25.7-33.7); MEAN CELL VOLUME 87.8 fl (80-96); MEAN PLT VOLUME 8.5 fl (7.5-11.1); PLATELET COUNT 209.4 10^3/uL (134-434); RDW 14.7 % (11.9-15.9); WHITE BLOOD COUNT 4.3 10^3/uL (4.0-10.8)
[2023-08-31 12:33] LABS: ALBUMIN 4.8 g/dl (3.4-5.0); BILIRUBIN,TOTAL 0.9 mg/dl (0.2-1); BLOOD UREA NITROGEN 16.5 mg/dl (7-18); CALCIUM 9.7 mg/dl (8.5-10.1); CREATININE 0.8 mg/dl (0.6-1.3); SGOT/AST 19.4 U/L (15-37); SGPT/ALT 11.9 U/L (7-52); TOT PROT 7.1 g/dl (6.4-8.2)
== END 2023-08-31 13:30 | disposition home or self-care (01) ==
LOC: FER 11:09
PROC: 3E033GC Introduction of Other Therapeutic Substance into Peripheral Vein, Percutaneous Approach (ICD-10-PCS; principal; 2023-08-31)
PROC: 3E0F7GC Introduction of Other Therapeutic Substance into Respiratory Tract, Via Natural or Artificial Opening (ICD-10-PCS; 2023-08-31)
DX: R06.02 Shortness of breath (principal); J43.9 Emphysema, unspecified
CPT/HCPCS: 36415; 71046-TC-FY; 80053; 84484; 85027; 93005; 99285-25

== ENCOUNTER 2023-09-12 15:48 | Emergency (ER) | payer OTHER ==
[2023-09-12 15:58] VITALS: BP 125/74; PULSE 91; RESP 18; TEMP 98.1; BMI 20.3
== END 2023-09-12 19:14 | disposition left against medical advice (07) ==
LOC: JER 15:48
DX: S30.861A Insect bite (nonvenomous) of abdominal wall, initial encounter (principal); W57.XXXA Bitten or stung by nonvenomous insect and other nonvenomous arthropods, initial encounter
CPT/HCPCS: 99281-25

== ENCOUNTER 2024-02-20 11:23 | Emergency (ER) | payer OTHER ==
[2024-02-20 11:27] VITALS: TEMP 98.4; BMI 20.3
[2024-02-20] MEDS ORDERED: ALBUTEROL SO4 0.083% IH SOL 2.5 MG/3 ML VIAL.NEB. NEB ONE ×2 (12:38→13:27)
[2024-02-20] MEDS: ALBUTEROL SO4 2.5/IPRATROPIUM 0.5 INH SOL 3 ML VIAL.NEB. NEB ONE ×2 (12:53→13:33)
[2024-02-20 13:08] LABS: BASO % 0.4 % (0-2.0); EOS % 1.2 % (0-4.5); HEMATOCRIT 40.3 % (35.4-49); HEMOGLOBIN 13.4 GM/dL (11.7-16.9); MCH 28.9 pg (25.7-33.7); MCHC 33.2 g/dl (32.0-35.9); MEAN CELL VOLUME 86.9 fl (80-96); MEAN PLT VOLUME 8.1 fl (7.5-11.1); MONO % 9.8 % (3.8-10.2); NEUT % 59.6 % (42.8-82.8); PLATELET COUNT 219 10^3/uL (134-434); RBC 4.64 M/mm3 (4.00-5.60); WHITE BLOOD COUNT 5.4 K/mm3 (4.0-10.0)
[2024-02-20 13:13] LABS: INR 1.09 (0.83-1.09); PROTHROMBIN TIME (PATIENT) 12.6 SEC (9.7-13.0)
[2024-02-20 13:26] LABS: POTASSIUM 4.9 mmol/L (3.5-5.1)
[2024-02-20 13:28] LABS: BLOOD UREA NITROGEN 17.5 mg/dL (7-18); CALCIUM 9.8 mg/dL (8.5-10.1); MAGNESIUM 2.3 mg/dL (1.8-2.4)
[2024-02-20] MEDS ORDERED: methylPREDNISolone NA SUCC 125 MG/2 ML VIAL ONE (13:28)
[2024-02-20 13:31] LABS: CREATININE 0.7 mg/dL (0.55-1.3)
[2024-02-20 13:33] LABS: BILIRUBIN,TOTAL 0.6 mg/dL (0.2-1); TOT PROT 7.2 g/dl (6.4-8.2)
[2024-02-20] MEDS: methylPREDNISolone NA SUCC 125 MG/2 ML VIAL IVPUSH ONE (13:33)
[2024-02-20 14:47] VITALS: BP 111/71; PULSE 69; RESP 18
== END 2024-02-20 15:17 | disposition home or self-care (01) ==
LOC: JER 11:23
PROC: 3E033GC Introduction of Other Therapeutic Substance into Peripheral Vein, Percutaneous Approach (ICD-10-PCS; principal; 2024-02-20)
PROC: 3E0F7GC Introduction of Other Therapeutic Substance into Respiratory Tract, Via Natural or Artificial Opening (ICD-10-PCS; 2024-02-20)
PROC: 3E0F7GC Introduction of Other Therapeutic Substance into Respiratory Tract, Via Natural or Artificial Opening (ICD-10-PCS; 2024-02-20)
DX: R06.02 Shortness of breath (principal); J43.9 Emphysema, unspecified; R07.89 Other chest pain; Z20.822 Contact with and (suspected) exposure to COVID-19
CPT/HCPCS: 0241U-QW; 36415; 71046-TC-FY; 80053; 83735; 84484; 85025; 85610; 93005; 93010; 99285-25